=== PATIENT | female | born 1965 | race Caucasian/White ===

== ENCOUNTER 2017-09-22 10:22 | Day surgery (SDC) | payer MEDICARE, MEDICAID, SELFPAY ==
[2017-09-22 10:45] VITALS: BP 132/87; PULSE 80; RESP 16; TEMP 36.8; O2SAT 93; BMI 53.6
[2017-09-22 11:01] LABS: Bedside Glucose 139 mg/dL (70-110)
--- NOTE | 2017-09-22 11:50 | RAD_ITS ---
PROCEDURE: Caudal block. DATE OF EXAMINATION: September 22, 2017. INDICATION: Female, 51 years old. Low back pain. FLUOROSCOPY TIME (if supplied): (0:10) minutes/seconds A caudal block was performed by the pain management physician. The spinal needle is seen along the mid inferior aspect of the posterior sacrum. RAD/Fluor Guidance for Spine Inj IMPRESSION: Imaging provided for caudal block. Electronically Signed: Michael Ball MD at 15:20 EDT Tel [phone], Service support ,
[2017-09-22] MEDS: MethylPREDNISolone Acetate 80 MG/ML Vial (12:05)
[2017-09-22] MEDS: Bupivacaine 0.25% 30 ML Vial (12:05)
[2017-09-22 12:11] VITALS: BP 122/82; BP 132/87; PULSE 81; RESP 16; TEMP 36.7; O2SAT 94
[2017-09-22 12:15] VITALS: BP 112/92; BP 132/87; PULSE 80; RESP 16; O2SAT 92
[2017-09-22 12:20] VITALS: BP 123/90; BP 132/87; PULSE 82; RESP 18; O2SAT 94
[2017-09-22 12:25] VITALS: BP 125/84; BP 132/87; PULSE 80; RESP 18; TEMP 37; O2SAT 94
[2017-09-22 12:26] LABS: Bedside Glucose 147 mg/dL (70-110)
[2017-09-22 12:42] VITALS: BP 125/84; BP 132/87
--- NOTE | 2017-09-22 13:34 | OP.PCM_ITS ---
Problem List (1) Degeneration of intervertebral disc of lumbosacral region Status: Chronic (2) Radiculopathy of lumbosacral region Status: Chronic Report of Operation Date of Procedure: 09/22/17 Pre-Operative Diagnosis: Lumbosacral radiculopathy, lumbosacral degenerative disc disease, lumbosacral spinal stenosis Post-Operative Diagnosis: Lumbosacral radiculopathy, lumbosacral degenerative disc disease, lumbosacral spinal stenosis Surgery/Procedure Performed:: Diagnostic/therapeutic caudal epidural steroid injection Description of Surgical Findings:: PROCEDURE: Diagnostic/therapeutic caudal epidural steroid injection PREOPERATIVE DIAGNOSIS: Lumbosacral radiculopathy, lumbosacral degenerative disc disease, lumbosacral spinal stenosis POSTOPERATIVE DIAGNOSIS: Lumbosacral radiculopathy, lumbosacral degenerative disc disease, lumbosacral spinal stenosis ANESTHESIA: MAC COMPLICATIONS: None BLOOD LOSS: Minimal PROCEDURE IN DETAIL: History and physical today was reviewed. Risks and benefits of the procedure were explained. The patient understood, agreed to our procedure, and informed consent was obtained. IV inserted per routine protocol. The patient was taken to the operating room, placed in a prone position with a pillow positioned underneath the abdomen. The lower back and tailbone area was prepped and draped in a sterile fashion using iodine ?3 under direct visualization fluoroscopy on the lateral view the caudal space was identified the skin and subcutaneous tissue and size approximately 3 cc of 1% lidocaine using a 25-gauge regular needle under direct visualization with fluoroscopy on the lateral view using a 22-gauge 3-1/2 inch spinal needle the needle was advanced via the skin through the sacral hiatus the peroneal passed through the sacrococcygeal ligament advanced approximately S4 area after negative aspiration of blood or CSF a total of 3 cc of contrast were injected to confirm correct placement of the needle as well as cephalad spread spread was followed to approximately L5 area after confirmation AP as well as lateral view and repeated negative aspiration a total of 15 cc of preservative-free 0.125% Marcaine with 80 mg of the portal was injected easily. The needles were then removed intact. The patient experienced no signs or symptoms intrathecal, intravascular injection. The patient experienced no paraesthesia. The procedure was completed without any apparent difficult, any complication. The patient appeared to tolerate well. ASSESSMENT AND PLAN: This is a 51-year-old female with lumbosacral radiculopathy lumbosacral degenerative disc disease lumbosacral spinal stenosis status post diagnostic/ therapeutic caudal epidural steroid injection. The patient will continue his current medications. The patient will follow in approximately 2 weeks for possible repeat of the procedure if indicated.
== END 2017-09-22 12:44 | disposition home or self-care (01) ==
LOC: SDC 10:24 → AC 10:26
PROVIDERS: Family Provider Internal Medicine; PCP Internal Medicine; Visit Provider Anesthesiology Pain Medicine
PROC: 3E0S3BZ Introduction of Anesthetic Agent into Epidural Space, Percutaneous Approach (ICD-10-PCS; CPT 62282; principal; 2017-09-22 11:45)
DX: M51.17 Intervertebral disc disorders with radiculopathy, lumbosacral region (principal); M48.07 Spinal stenosis, lumbosacral region; E11.9 Type 2 diabetes mellitus without complications; I10 Essential (primary) hypertension; M19.90 Unspecified osteoarthritis, unspecified site; M79.7 Fibromyalgia; R53.83 Other fatigue; G47.30 Sleep apnea, unspecified; K21.9 Gastro-esophageal reflux disease without esophagitis; F41.0 Panic disorder [episodic paroxysmal anxiety]; F32.9 Major depressive disorder, single episode, unspecified; F41.9 Anxiety disorder, unspecified; Z79.84 Long term (current) use of oral hypoglycemic drugs; Z79.82 Long term (current) use of aspirin; Z79.52 Long term (current) use of systemic steroids; Z79.891 Long term (current) use of opiate analgesic; Z79.899 Other long term (current) drug therapy; Z98.51 Tubal ligation status
CPT/HCPCS: 01992; 62323; 64483; 77003; 82962; J7120; J3490

== ENCOUNTER 2017-10-27 07:24 | Day surgery (SDC) | payer SELFPAY ==
[2017-10-27 07:43] VITALS: BP 130/63; PULSE 88; RESP 18; TEMP 36.7; O2SAT 94; BMI 52.1
[2017-10-27 08:06] LABS: Bedside Glucose 132 mg/dL (70-110)
--- NOTE | 2017-10-27 08:30 | RAD_ITS ---
PROCEDURE: Fluoroscopy guided intraoperative pain management DATE OF EXAMINATION: 10/27/2017 INDICATION: Female, 51 years old. Back pain. PHYSICIAN: Dr. Simmons FLUOROSCOPY TIME (if supplied): 21.5 seconds RADIATION DOSAGE (If Supplied By Facility): 11.91 mGy PROCEDURE/TECHNIQUE: Fluoroscopy and 4 fluoroscopic spot images were obtained under direction, supervision and review of the intraoperative physician. Radiologist not present intraoperatively. Please see intraoperative report for details. RAD/Lumbar Spine 2 or 3 Views IMPRESSION: Imaging provided for lumbosacral pain management. Please see intraoperative report for details. Electronically Signed: Chandu Monaco, at 13:41 EDT Tel , Service support ,
[2017-10-27 08:45] VITALS: BP 105/74; BP 130/63; PULSE 83; RESP 12; TEMP 36.9; O2SAT 95
[2017-10-27 08:50] VITALS: BP 114/75; BP 130/63; PULSE 86; RESP 16; O2SAT 94
[2017-10-27 08:55] VITALS: BP 103/74; BP 130/63; PULSE 83; RESP 16; O2SAT 93
[2017-10-27 09:00] VITALS: BP 130/63; BP 134/75; PULSE 83; RESP 16; TEMP 36.6; O2SAT 95
[2017-10-27 09:17] VITALS: BP 130/63
--- NOTE | 2017-10-27 10:42 | PCM.OPRPT ---
Problem List (1) Spondylosis of lumbosacral region without myelopathy or radiculopathy Status: Chronic (2) Degeneration of intervertebral disc of lumbosacral region Status: Chronic Report of Operation Date of Procedure: 10/27/17 Pre-Operative Diagnosis: Lumbosacral spondylosis, lumbosacral degenerative disc disease, and lumbar facet arthropathy Post-Operative Diagnosis: Lumbosacral spondylosis, lumbosacral degenerative disc disease, and lumbar facet arthropathy Surgery/Procedure Performed:: Right-sided lumbar facet steroid injection L3, L4, L5, S1 Description of Surgical Findings:: PROCEDURE: Right-sided lumbar facet steroid injection L3, L4, L5, S1 PREOPERATIVE DIAGNOSIS: Lumbosacral spondylosis, lumbosacral degenerative disc disease, and lumbar facet arthropathy POSTOPERATIVE DIAGNOSIS: Lumbosacral spondylosis, lumbosacral degenerative disc disease, and lumbar facet arthropathy ANESTHESIA: MAC COMPLICATIONS: None BLOOD LOSS: Minimal PROCEDURE IN DETAIL: History and physical today was reviewed. Risks and benefits of the procedure were explained. The patient understood, agreed to our procedure, and informed consent was obtained. IV inserted per routine protocol. The patient was taken to the operating room, placed in a prone position with a pillow positioned underneath the abdomen. The right side of his lower back was prepped and draped in a sterile fashion using iodine x3. Under fluoroscopy guidance, on AP view, L3 through S1 vertebral bodies were visualized. Skin and subcutaneous tissues were anesthetized with approximately 5 mL of 1% lidocaine using a 25-gauge regular needle. Under direct visualization with fluoroscopy at approximately 25-degree angle, starting on the right L3, ending on the right S1, passing through the L4-L5 using a 22-gauge 3 1/2-inch spinal needle, the needle was advanced via the skin. The tip of the needle was maneuvered and directed towards the superior and medial gutter of the transverse process at the vicinity of the medial branch. Once the tip of the needle was in contact with the bone, the needle pulled approximately 2 mm off the bone. After negative aspiration of blood with CSF and confirmation of AP as well as oblique view, a total of 8 mL of preservative-free 0.25% Marcaine with 80 mg of Depo-Medrol was injection in divided doses between those 4 levels. The needles were then removed intact. The patient experienced no signs or symptoms intrathecal, intravascular injection. The patient experienced no paraesthesia. The procedure was completed without any apparent difficult, any complication. The patient appeared to tolerate well. ASSESSMENT AND PLAN: This is a 51-year-old Female with Lumbosacral spondylosis, lumbosacral degenerative disc disease, and lumbar facet arthropathy, status post right-sided lumbar facet steroid injection L3 through S1. The patient will continue her current medications. The patient will follow in approximately 2 weeks for possible repeat of the procedure if indicated.
--- NOTE | 2017-10-27 10:45 | OP.PCM_ITS ---
Problem List (1) Spondylosis of lumbosacral region without myelopathy or radiculopathy Status: Chronic (2) Degeneration of intervertebral disc of lumbosacral region Status: Chronic Report of Operation Date of Procedure: 10/27/17 Pre-Operative Diagnosis: Lumbosacral spondylosis, lumbosacral degenerative disc disease, and lumbar facet arthropathy Post-Operative Diagnosis: Lumbosacral spondylosis, lumbosacral degenerative disc disease, and lumbar facet arthropathy Surgery/Procedure Performed:: Right-sided lumbar facet steroid injection L3, L4 , L5, S1 Description of Surgical Findings:: PROCEDURE: Right-sided lumbar facet steroid injection L3, L4, L5, S1 PREOPERATIVE DIAGNOSIS: Lumbosacral spondylosis, lumbosacral degenerative disc disease, and lumbar facet arthropathy POSTOPERATIVE DIAGNOSIS: Lumbosacral spondylosis, lumbosacral degenerative disc disease, and lumbar facet arthropathy ANESTHESIA: MAC COMPLICATIONS: None BLOOD LOSS: Minimal PROCEDURE IN DETAIL: History and physical today was reviewed. Risks and benefits of the procedure were explained. The patient understood, agreed to our procedure, and informed consent was obtained. IV inserted per routine protocol. The patient was taken to the operating room, placed in a prone position with a pillow positioned underneath the abdomen. The right side of his lower back was prepped and draped in a sterile fashion using iodine x3. Under fluoroscopy guidance, on AP view, L3 through S1 vertebral bodies were visualized. Skin and subcutaneous tissues were anesthetized with approximately 5 mL of 1% lidocaine using a 25-gauge regular needle. Under direct visualization with fluoroscopy at approximately 25-degree angle, starting on the right L3, ending on the right S1, passing through the L4-L5 using a 22-gauge 3 1/2-inch spinal needle, the needle was advanced via the skin. The tip of the needle was maneuvered and directed towards the superior and medial gutter of the transverse process at the vicinity of the medial branch. Once the tip of the needle was in contact with the bone, the needle pulled approximately 2 mm off the bone. After negative aspiration of blood with CSF and confirmation of AP as well as oblique view, a total of 8 mL of preservative-free 0.25% Marcaine with 80 mg of Depo- Medrol was injection in divided doses between those 4 levels. The needles were then removed intact. The patient experienced no signs or symptoms intrathecal, intravascular injection. The patient experienced no paraesthesia. The procedure was completed without any apparent difficult, any complication. The patient appeared to tolerate well. ASSESSMENT AND PLAN: This is a 51-year-old Female with Lumbosacral spondylosis, lumbosacral degenerative disc disease, and lumbar facet arthropathy, status post right- sided lumbar facet steroid injection L3 through S1. The patient will continue her current medications. The patient will follow in approximately 2 weeks for possible repeat of the procedure if indicated.
== END 2017-10-27 09:28 | disposition home or self-care (01) ==
LOC: SDC 07:25 → AC 07:31
PROVIDERS: Family Provider Internal Medicine; PCP Internal Medicine; Visit Provider Anesthesiology Pain Medicine
PROC: 3E0T3BZ Introduction of Anesthetic Agent into Peripheral Nerves and Plexi, Percutaneous Approach (ICD-10-PCS; CPT 64493; principal; 2017-10-27 08:25)
DX: M47.897 Other spondylosis, lumbosacral region (principal); M51.37 Other intervertebral disc degeneration, lumbosacral region; M46.96 Unspecified inflammatory spondylopathy, lumbar region; M48.061 Spinal stenosis, lumbar region without neurogenic claudication; I10 Essential (primary) hypertension; E11.9 Type 2 diabetes mellitus without complications; L40.9 Psoriasis, unspecified; F41.9 Anxiety disorder, unspecified; F32.9 Major depressive disorder, single episode, unspecified; M79.7 Fibromyalgia; E11.40 Type 2 diabetes mellitus with diabetic neuropathy, unspecified; G47.30 Sleep apnea, unspecified; M19.90 Unspecified osteoarthritis, unspecified site; K21.9 Gastro-esophageal reflux disease without esophagitis; E66.9 Obesity, unspecified; Z68.43 Body mass index [BMI] 50.0-59.9, adult; Z90.49 Acquired absence of other specified parts of digestive tract; Z79.82 Long term (current) use of aspirin; Z79.84 Long term (current) use of oral hypoglycemic drugs; Z79.891 Long term (current) use of opiate analgesic; Z79.899 Other long term (current) drug therapy
CPT/HCPCS: 64493; 64494; 64495; 64483; 72100; 82962; J7120

== ENCOUNTER 2017-11-10 13:09 | Emergency (ER) | payer MEDICARE, MEDICAID, SELFPAY ==
[2017-11-10 13:10] VITALS: BP 128/88; PULSE 122; RESP 16; TEMP 36.3; O2SAT 98; BMI 52.2
--- NOTE | 2017-11-10 13:33 | ED.VISSUMM ---
- ER Visit Summary Date of Service: 11/10/17 Chief Complaint: Stomach and back pain History of Present Illness: The patient is a 52 F who presents with stomach pain, pain in the back. She states is been ongoing for 3 days. She states the pain is there both of her kidneys. She also has pain over her bladder. She admits to dysuria with some urinary hesitancy as well. She has a history of UTIs in the past. No documented fevers denies any nausea or vomiting. She does have a history of fibromyalgia. Physical Examination: Vital signs reviewed. HEENT exam unremarkable. Heart is tachycardic and regular rhythm without murmurs. Lungs are clear to auscultation. Abdomen is soft with suprapubic tenderness to palpation. She does have some CVA tenderness on both sides. Her neurologic exam is normal. Test Results: Urinalysis reveals 2+ leukocytes and greater than 100 white blood cells Emergency Department Course and Treatment: Patient will be treated with Macrobid. She has no nausea or vomiting so I believe she can be treated as an outpatient. Treatment Plan: [] Disposition: Discharge Impression: Pyelonephritis This note was generated with [employer] dictation software. It may contain incorrect words, spelling, and punctuation that were not noted in review of the chart prior to signing ED Disposition - Plan for ED Patient: Chief Complaint: Complaint Referrals: Amanda Hallman MD [Primary Care Provider] -
[2017-11-10 13:55] LABS: Bacteria 0 SEEN /hpf (None Seen); Mucous, Urine 0 SEEN /hpf (<or=2+); Red Blood Cells-Urine 0 SEEN /hpf (0-5); Squamous Epithelial Cells - UA 0 SEEN /hpf (5-10)
[2017-11-10 13:57] LABS: Color, Urine Yellow (Yellow); Glucose, Dipstick Normal (Normal); Ketone-Dipstick Negative (Negative); Leukocyte Esterase-Dipstick 500 /ul (Negative); Nitrite-Dipstick Positive (Negative); Occult Blood-Urine 250 /ul (Negative); Protein-Dipstick 500 mg/dl (Negative); Specific Gravity, Urine 1.015 (1.002-1.030); Urine Bilirubin Dipstick Negative (Negative); Urine Clarity Turbid (Clear); Urine Urobilinogen 1 mg/dl (Normal)
[2017-11-10 14:05] LABS: White Blood Cells >100 SEEN /hpf (0-5)
--- NOTE | 2017-11-10 14:22 | ED.DEP ---
ED Disposition - Plan for ED Patient: Disposition: Home or Assisted Living Chief Complaint: Complaint Instructions: ED Kidney Infec Female Prescriptions: Nitrofurantoin Macrocrystals [Macrobid] 100 mg PO Q12 #14 cap Referrals: Amanda Hallman MD [Primary Care Provider] -
[2017-11-10] MEDS: Nitrofurantoin Macrocrystals 100 MG Capsule PO (14:49)
[2017-11-10 14:53] VITALS: PULSE 84; RESP 17; O2SAT 90
== END 2017-11-10 14:56 | disposition home or self-care (01) ==
PROVIDERS: Emergency Provider Emergency Medicine; Family Provider Internal Medicine; PCP Internal Medicine
DX: N12 Tubulo-interstitial nephritis, not specified as acute or chronic (principal); E11.9 Type 2 diabetes mellitus without complications; I10 Essential (primary) hypertension; M79.7 Fibromyalgia; Z79.82 Long term (current) use of aspirin; Z79.4 Long term (current) use of insulin; Z79.899 Other long term (current) drug therapy; Z87.440 Personal history of urinary (tract) infections
CPT/HCPCS: 81001; 99283

== ENCOUNTER 2018-10-29 23:20 | Inpatient (IN) | payer MEDICARE, MEDICAID, SELFPAY ==
[2018-10-29 23:22] VITALS: BP 83/58; PULSE 138; RESP 18; TEMP 36.6; O2SAT 93; BMI 39.1
[2018-10-29 23:25] VITALS: BP 79/57; PULSE 113; RESP 16; O2SAT 94
--- NOTE | 2018-10-29 23:36 | EKG12_ITS ---
Test Reason : Blood Pressure : / mmHG Vent. Rate : 111 BPM Atrial Rate : 111 BPM P-R Int : 154 ms QRS Dur : 082 ms QT Int : 342 ms P-R-T Axes : 041 006 049 degrees QTc Int : 465 ms Sinus tachycardia Otherwise normal ECG Confirmed by ADAN MESSER ([id number]), telegraph editor ANGELA DASH ([id number]) on 11/02/2018 1:15:33 PM Referred By: MATHEW Confirmed By:ADAN MESSER
--- NOTE | 2018-10-29 23:38 | ED.DCSUM_ITS ---
History of Present Illness Chief Complaint: Diarrhea Informant: Patient - Abdominal Pain/Flank Pain Onset: Days - 5 Context: Gradual Onset Timing: Continuous Quality: Aching Location: - - pain in lower abd Current Severity: Mild Maximum Severity: Mild Worsened by: Nothing Relieved by: Nothing - Nausea/Vomiting/Emesis GI Symptom: Negative for: Nausea, Vomiting - Diarrhea/Melena/Hematochezia GI Symptom: Diarrhea, Hematochezia - I think so, at times. Negative for: Melena - I don't think so Onset: Days - 5 Stool Quality: Watery - and slimy Severity: Severe - over 10 bouts/day Associated Symptoms: Negative for: Dysuria, Frequency, Hematuria, Urgency Narrative: Patient states she has felt malaise with this diarrhea, she stood up tonight and had a near syncopal episode, she did not lose consciousness. No chest pain or shortness of breath. States she has been drinking water without nausea or vomiting. No recent antibiotics, no known sick contacts, no recent travel. No history of C. difficile or known contact with C. difficile or longterm patient. No recent hospitalization or surgeries in the past several months. No recent camping or new sources of ground water ingestion. Denies any known fevers. Having some lower abdominal discomfort that has been relatively mild. - Past Medical History (1) Degeneration of intervertebral disc of lumbosacral region Status: Chronic (2) Depression Status: Chronic (3) Diabetes mellitus, type II Status: Chronic (4) Diastolic dysfunction Status: Chronic (5) Fibromyalgia Status: Chronic (6) Hypertension Status: Chronic (7) Morbid obesity Status: Chronic (8) Obstructive sleep apnea Status: Chronic (9) Osteoarthritis Status: Chronic (10) Spondylosis of lumbosacral region without myelopathy or radiculopathy Status: Chronic (11) TIA (transient ischemic attack) Status: Suspected Past Medical History - Allergies and Home Meds Allergies/Adverse Reactions: Allergies amoxicillin trihydrate [From Augmentin] Allergy (Verified 10/29/18 23:49) Unknown potassium clavulanate [From Augmentin] Allergy (Verified 10/29/18 23:49) Unknown Primary Care Physician: Amanda Hallman MD [Primary Care Provider] - Surgical History: cholecystectomy, - - Cholecystectomy, , tubal ligation Lives: With Family Smoking Status: Current some day smoker Drugs: None - Family History Maternal Family History: Reports: - Paternal Family History: Reports: Heart Disease, - Review of Systems General: Reports: Malaise. Denies: Chills, Fever, Sweats Eyes: Denies: Visual changes - bilaterally, Diplopia ENT: Denies: Rhinorrhea, Sore throat Cardiovascular: Denies: Chest pain, Palpitations Respiratory: Denies: Dyspnea, Cough, Dyspnea on exertion Gastrointestinal: Reports: Abdominal pain, Diarrhea, Hematochezia. Denies: Nausea, Vomiting, Melena Genitourinary: Denies: Dysuria, Hematuria, Frequency Musculoskeletal: Reports: Back pain - low. Denies: Swelling, Extremity Pain Skin: Denies: Rash, Wounds Neurological: Denies: Headache, Weakness, Numbness Physical Exam Vital Signs/Narrative: Vital Signs Temp Pulse Resp BP Pulse Ox 10/29/18 23:22 97.9 F 138 H 18 83/58 L 93 Inital Vital Signs reviewed: Yes General: Well nourished, Well developed, Obese, No Acute Distress Head: Normocephalic, Atraumatic Eyes: Perrl, EOMI ENT: Moist mucous membranes, No rhinorrhea Neck: Supple, Nontender, No JVD Cardiovascular: Regular rate, Regular rhythm, No murmurs, Tachycardia Respiratory: No distress, CTA bilaterally, Chest nontender Abdomen: Soft, Nontender, Nondistended, Normal bowel sounds, No masses. Negative for: Pulsatile mass Rectal: Guaiac positive, Nontender - no gross blood Back: Nontender, Normal Inspection Extremities: Nontender, No edema. Negative for: Calf Tenderness Skin: Normal color, No rash, No Trauma Neurological: Alert, Oriented x3, Cranial nerves II-XII grossly intact, Normal Strength, Normal Sensation Psychological: Normal affect, Normal Mood Diagnostic/Tx/Re-eval 10/29/18 23:35 Stool Stool Occult Blood (AMANDA) - Final Occult Blood Positive Laboratory Results 10/29/18 10/29/18 23:35 23:35 WBC 15.6 H RBC 6.04 H Hgb 16.7 H Hct 51.6 H MCV 85.4 MCH 27.6 MCHC 32.4 RDW Std Deviation 43.2 RDW Coeff of Omar 13.9 Plt Count 330 MPV 11.0 Immature Gran % (Auto) 0.400 Neut % (Auto) 56.2 Lymph % (Auto) 30.7 [place] % (Auto) 11.2 H Eos % (Auto) 1.1 Baso % (Auto) 0.4 Absolute Neuts (auto) 8.8 H Absolute Lymphs (auto) 4.79 H Nucleated RBC % 0 Sodium 137 Potassium 3.6 Chloride 102 Carbon Dioxide 28.0 Anion Gap 7 BUN 18 Creatinine 1.51 H Estim Creat Clear Calc 41.90 Est GFR (MDRD) Af Amer 46 L Est GFR (MDRD) Non-Af 38 L BUN/Creatinine Ratio 11.9 Glucose 137 H Calcium 8.8 Total Bilirubin 0.30 AST 12 L ALT 16 Alkaline Phosphatase 96 Total Protein 7.0 Albumin 2.9 L Globulin 4.1 Albumin/Globulin Ratio 0.7 L - Rhythm Strip Rhythm Strip: Sinus Tach Rate: 111 Ectopy: None - EKG Initial EKG Interpretation: No Acute Injury Pattern, Sinus Tachycardia - Medical Decision Making After the first liter of IV fluid bolus, her heart rate is come down to 94 but her blood pressure still 82/59 as we started a second liter. She is feeling a little better. Her abdominal exam is very benign. She does not have any red f lag historical items that suggest the cause of this, but her Hemoccult is positive, and she has a leukocytosis indicating possibility of bacterial/infectious etiology which would not be able to be verified until stool is tested, she has not provided a specimen yet. I am not providing empiric antibiotics because there is the potential of worsening her diarrhea, and I suspect she is hypovolemic shock as opposed to septic shock. Clinically she does not look poorly while lying supine here in bed. However given her blood pressure after the first liter and half of the second, plan is for ICU admi ssion. Critical care time (excluding procedures): 30-74 minutes - 34 minutes, including time spent discussing with patient and family, consultants, arranging admission, and performing direct patient care at the bedside ED Disposition - Plan for ED Patient: Disposition: Acute Care Hospital [facility] Diagnosis: Acute diarrhea, Hypovolemic shock, Dehydration Referrals: Amanda Hallman MD [Primary Care Provider] -
[2018-10-29 23:48] LABS: Absolute Lymphocyte Count 4.79 X10^3/uL (0.83-4.51); Absolute Neutrophil Count 8.8 X10^3/uL (2.0-7.7); Basophil# 0.07 X10^3/uL; Basophil% 0.4 % (0-1); Eosinophil# 0.17 X10^3/uL; Eosinophils% 1.1 % (0-5); Hematocrit 51.6 % (37-47); Hemoglobin 16.7 g/dL (12.0-15.0); Lymphocyte # 4.79 X10^3/ul (4.0); Lymphocyte % 30.7 % (19-41); Mean Corp Hgb Conc 32.4 g/dL (32-36); Mean Corpuscular Hgb 27.6 pg (27.0-32.0); Mean Corpuscular Volume 85.4 fL (81-99); Monocyte# 1.75 X10^3/uL; Monocyte% 11.2 % (0-10); NRBC Flagged by Analyzer 0 % (0-5); Neutrophil # 8.76 X10^3/uL (2.7-7.7); Neutrophil % 56.2 % (47-70); POSITIVE DIFFERENTIAL YES; Platelet Count 330 K/mm3 (150-450); RBC Distribution Width CV 13.9 % (11.6-14.6); RBC Distribution Width SD 43.2 fl (35.1-43.9); Red Blood Count 6.04 M/mm3 (4.2-5.4); White Blood Count 15.6 K/mm3 (4.4-11.0)
[2018-10-29 23:54] LABS: Differential Indicated SCAN CRITERIA MET
[2018-10-29] MEDS: 0.9% Normal Saline 1,000 ML 999 ML IV (23:54)
[2018-10-30] VITALS (20 sets, daily range): BP systolic 82–124; BP diastolic 55–87; PULSE 84–105; RESP 15–21; TEMP 36.6–36.8; O2SAT 91–99; BMI 39.9; BMI 40.0
[2018-10-30 00:09] LABS: ALB/GLOB Ratio 0.7 RATIO (0.9-2.4); AST(SGOT) 12 U/L (15-37); Alanine Aminotransfer ALT/SGPT 16 U/L (13-56); Albumin, Serum 2.9 g/dL (3.2-5.0); Alkaline Phosphatase 96 U/L (45-117); Anion Gap 7 (5-15); BUN 18 mg/dL (7-18); BUN/Creat Ratio 11.9 RATIO (10-20); Calcium,Total 8.8 mg/dL (8.5-10.1); Chloride 102 mmol/L (98-107); Creatinine, Serum 1.51 mg/dL (0.55-1.02); EST Glomerular Filtration Rate 38 mL/min (>60); Est Glom Filt Rate - Afr Amer 46 mL/min (>60); Globulin 4.1 g/dL (2.2-4.2); Glucose 137 mg/dL (74-106); Potassium 3.6 mmol/L (3.5-5.1); Sodium Level 137 mmol/L (136-145)
[2018-10-30 00:23] LABS: Differential Comment SCANNED
[2018-10-30 00:25] LABS: Reactive Lymphocyte 2+
[2018-10-30] MEDS: 0.9% Normal Saline 1,000 ML 999 ML IV (00:25)
--- NOTE | 2018-10-30 00:25 | PCM.HP.STD ---
Problem List (1) Acute diarrhea Status: Acute (2) Hypovolemic shock Status: Acute History of Present Illness Date of Admission: 10/30/18 Chief Complaint: diarrhea The patient is a 52 year old F with a significant history of fibromyalgia; depression; hypertension; obesity with history of gastric sleeve surgery who presents at the emergency department with 5 days history of diarrhea. Reportedly on the day of presentation his bowels moved 15 times. A day before presentation his bowels moved about 12 times. She denies any nausea or vomiting. She reports anorexia and lower abdominal pain. She reported that on the day of presentation after her bowels moved and when she was cleaning up she felt lightheaded and nearly passed out. At the emergency department patient was found to have a low blood pressure for which she received fluid boluses. Patient is unable to confirm whether she has blood in her stool.. She thinks that at one time she had blood in his stool but she is not sure. At the emergency department fecal occult blood was positive. 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) Obstructive sleep apnea (Chronic) Depression (Chronic) Diastolic dysfunction (Chronic) Diabetes mellitus, type II (Chronic) Osteoarthritis (Chronic) Morbid obesity (Chronic) Hypertension (Chronic) Fibromyalgia (Chronic) Allergies amoxicillin trihydrate [From Augmentin] Allergy (Verified 10/29/18 23:49) Unknown potassium clavulanate [From Augmentin] Allergy (Verified 10/29/18 23:49) Unknown Home Medications: Ambulatory Orders Medication Instructions Recorded Aripiprazole [Abilify] 5 mg PO DAILY 03/10/15 Hydrochlorothiazide [Hctz] 25 mg PO DAILY 03/10/15 Lisinopril [Zestril] 10 mg PO DAILY 03/10/15 cycloBENZAPRine HCl [Flexeril] 10 mg PO DAILY PRN 03/10/15 Pantoprazole Sodium [Protonix] 40 mg PO DAILY 11/30/15 Duloxetine Hcl [Cymbalta] 90 mg PO DAILY 01/02/17 Gabapentin [Neurontin] 300 mg PO 5X/DAY 09/22/17 Surgical History: cholecystectomy, - - Cholecystectomy, , tubal ligation; gastric sleeve surgery Lives: With Family Smoking Status: Former smoker Alcohol: None Drugs: None - *Family History Maternal History Items: Cancer - She reported her mother had breast and lung cancer, - Paternal History Items: Heart Disease - For her father from pulmonary cardiac arrest at age 50, - Review of Systems Constitutional: Reports: Chills, Fever - Subjective. Denies: Weight Change HEENT: Denies: Head Aches, Sinus Congestion, Sinus Drainage Cardiovascular: Denies: Chest Pain, Palpitations Respiratory: Denies: Cough, Shortness of breath at rest, Sputum production Gastrointestinal: Reports: Abdominal Pain, Diarrhea. Denies: Nausea, Vomiting Genitourinary: Denies: Dysuria Musculoskeletal: Denies: Joint Pain, Joint Tenderness Skin: Denies: Rash, Wounds Neurological: Denies: Numbness, Tingling, Focal weakness Psychiatric: Reports: Depression. Denies: Anxiety, Homicidal Ideations, Suicidal Ideations Hematologic/ Lymphatic: Denies: Easy Bruising, Easy Bleeding VTE Information - Inpt Only VTE Present on Admission: No VTE Mechan Device Prophylaxis: SCD's VTE Pharm Prophylaxis ordered?: No Patient Problems: Active and Suspected Problems Acute diarrhea (Acute) Hypovolemic shock (Acute) Dehydration (Acute) - Physical Exam General: Alert, Oriented x3, Cooperative HEENT: Atraumatic, PERRLA, EOMI, Normocephalic Neck: Supple, No JVD, Negative Carotid Bruits Lungs: Clear to auscultation, Normal air movement Cardiovascular: No murmurs, Tachycardic Abdomen: Bowel Sounds Present, Soft, Non Tender, Hyperactive Bowel Sounds Extremities: No edema, Capillary Refill Less than 3 Seconds Skin: No rashes, No breakdown Musculoskeletal: No Tenderness to Palpation of Joints or Extremities Neurological: Cranial nerves II-XII grossly intact Psych/Mental Status: Normal Affect, Appropriate Vital Signs Temp Pulse Resp BP Pulse Ox 97.9 F 113 H 16 79/57 L 94 10/29/18 23:22 10/29/18 23:25 10/29/18 23:25 10/29/18 23:25 10/29/18 23:25 Oxygen Flow Rate (L/min) 2 Oxygen Delivery Method Nasal Cannula Weight: 113.398 kg Body Mass Index (BMI) 39.1 Finger Stick Blood Glucose 147 Microbiology Past 72 Hours 10/29/18 23:35 Stool Occult Blood (AMANDA) - Final Stool Occult Blood Positive Laboratory Tests Past 24 Hrs 10/29/18 10/29/18 23:35 23:35 WBC 15.6 H RBC 6.04 H Hgb 16.7 H Hct 51.6 H MCV 85.4 MCH 27.6 MCHC 32.4 RDW Std Deviation 43.2 RDW Coeff of Omar 13.9 Plt Count 330 MPV 11.0 Immature Gran % (Auto) 0.400 Neut % (Auto) 56.2 Lymph % (Auto) 30.7 [place] % (Auto) 11.2 H Eos % (Auto) 1.1 Baso % (Auto) 0.4 Absolute Neuts (auto) 8.8 H Absolute Lymphs (auto) 4.79 H Nucleated RBC % 0 Sodium 137 Potassium 3.6 Chloride 102 Carbon Dioxide 28.0 Anion Gap 7 BUN 18 Creatinine 1.51 H Estim Creat Clear Calc 41.90 Est GFR (MDRD) Af Amer 46 L Est GFR (MDRD) Non-Af 38 L BUN/Creatinine Ratio 11.9 Glucose 137 H Calcium 8.8 Total Bilirubin 0.30 AST 12 L ALT 16 Alkaline Phosphatase 96 Total Protein 7.0 Albumin 2.9 L Globulin 4.1 Albumin/Globulin Ratio 0.7 L Assessment/Plan All Active Problems Acute diarrhea (Acute) Hypovolemic shock (Acute) Dehydration (Acute) Diabetes (Acute) The patient is a 52 year old F with a significant history of fibromyalgia; depression; hypertension; obesity with history of gasless sleeve who presents emergency department with 5 days history of diarrhea found to be severely hypotensive and also with elevated creatinine consistent with hypovolemic shock secondary to dehydration from diarrhea and BEST. Hypovolemic shock Likely secondary to diarrhea. Normal saline 2 L bolus was ordered at the emergency department. At the time of evaluation patient had about 200 mL's of normal saline letter to be fused. Will order a bolus of lactated Ringer this patient as the patient is mildly hypokalemic. Upon completion of lactated Ringer's if patient is hypovolemic consider further IV fluids. Hold home hydrochlorthiazide and lisinopril. Check magnesium level Complaints Coordinator consult. Acute diarrhea Enteric pathogen panel and C. difficile ordered emergency department. Also order O&P. Supportive treatment with IV fluids. Because of the gravity of her symptoms start patient on antibiotics, ciprofloxacin IV and Flagyl IV. Trend CBC. Regular diet. BEST: on presentation her creatinine was 1.51 Review of old records shows a creatinine baseline of around 1 Likely prerenal from dehydration secondary diarrhea. Avoid nephrotoxic's. HCTZ and lisinopril held Trend BMP. Fibromyalgia Cymbalta continued Depression: Abilify and Cymbalta continued Neuropathy Neurontin continued. However will decrease dose because of BEST. GERD Protonix continued DVT prophylaxis No chemical prophylaxis at this time because of occult blood in stool SCD ordered. Code Visit Inpatient E&M: 12798 Init Hosp L3
--- NOTE | 2018-10-30 01:10 | ED.RN ---
NURSE TO NURSE REPORT CALLED TO ICU
[2018-10-30] MEDS: Lactated Ringers 1,000 ML 999 ML IV ×2 (01:47→07:10)
[2018-10-30] MEDS: metroNIDAZOLE 500 MG/100 ML BAG 100 MG IV (02:50)
[2018-10-30] MEDS: 0.9% NaCl IVPB Med Flush (250 mL) 15 ML IV (02:50)
[2018-10-30] MEDS: Ciprofloxacin 400 MG/200 ML BAG 200 MG IV ×2 (02:50→08:47)
[2018-10-30 04:23] LABS: Absolute Lymphocyte Count 3.44 X10^3/uL (0.83-4.51); Absolute Neutrophil Count 5.9 X10^3/uL (2.0-7.7); Basophil# 0.06 X10^3/uL; Basophil% 0.6 % (0-1); Eosinophil# 0.09 X10^3/uL; Eosinophils% 0.8 % (0-5); Hematocrit 44.3 % (37-47); Hemoglobin 14.2 g/dL (12.0-15.0); Lymphocyte # 3.44 X10^3/ul (4.0); Mean Corp Hgb Conc 32.1 g/dL (32-36); Mean Corpuscular Hgb 27.5 pg (27.0-32.0); Mean Corpuscular Volume 85.9 fL (81-99); Mean Platelet Vol. 10.7 fl (6.2-12.0); Monocyte# 1.18 X10^3/uL; NRBC Flagged by Analyzer 0 % (0-5); Neutrophil # 5.93 X10^3/uL (2.7-7.7); Neutrophil % 55.2 % (47-70); Platelet Count 243 K/mm3 (150-450); RBC Distribution Width CV 13.9 % (11.6-14.6); Red Blood Count 5.16 M/mm3 (4.2-5.4); White Blood Count 10.7 K/mm3 (4.4-11.0)
[2018-10-30 04:36] LABS: Anion Gap 6 (5-15); BUN 15 mg/dL (7-18); BUN/Creat Ratio 14.4 RATIO (10-20); Calcium,Total 7.8 mg/dL (8.5-10.1); Chloride 107 mmol/L (98-107); Creatinine, Serum 1.04 mg/dL (0.55-1.02); EST Glomerular Filtration Rate 59 mL/min (>60); Est Glom Filt Rate - Afr Amer 71 mL/min (>60); Estimated Creatinine Clearance 60.83 ml/min; Glucose 110 mg/dL (74-106); Potassium 3.3 mmol/L (3.5-5.1); Sodium Level 142 mmol/L (136-145)
[2018-10-30] MEDS: Gabapentin 100 MG Capsule PO ×5 (06:23→22:28)
--- NOTE | 2018-10-30 07:17 | CON.PCM_ITS ---
Problem List (1) Radiculopathy of lumbosacral region Status: Chronic (2) Hypovolemic shock Status: Acute (3) Dehydration Status: Acute (4) Obstructive sleep apnea Status: Chronic (5) TIA (transient ischemic attack) Status: Suspected (6) Diastolic dysfunction Status: Chronic (7) Diabetes mellitus, type II Status: Chronic (8) Morbid obesity Status: Chronic (9) Hypertension Status: Chronic (10) Fibromyalgia Status: Chronic Reason for Consult Date of Consultation: 10/30/18 Reason for Consultation: Shock History of Present Illness: The patient is a 52 year old F, with past medical history listed below, who presented to [facility] on 10/29/2018 secondary to a near syncopal event. Patient reportedly had 2 days of diarrhea prior to presentation. Patient denied any nausea or vomiting, but stated on the day of presentation she had a near syncopal event, but did not lose consciousness. Patient has not recently been on antibiotics had sick contacts or recent travel. Patient does not have a history of C. difficile and is not been hospitalized recently. Patient does have a history of a gastric sleeve surgery with 60 pound weight loss. Patient states that she has not had any documented fevers, but has felt warm recently. Patient states that she is had some lower abdominal pain associated with this diarrhea. Patient denies any melena, hematochezia or hematemesis. In the ER, patient was noted to be 82/59 with a heart rate of 94. Patient was given 2 L of IV fluids with some improvement in blood pressure. Patient continued to report some lower abdominal pain, but had a relatively benign exam per ER evaluation. Patient was admitted to the intensive care unit for further monitoring. Overnight, patient has done well in the intensive care unit. Blood pressures have been doing well in a semirecumbent position and patient reported some improvement. Patient has not had any bowel movement since admission. Patient states that she still has a headache that she says is 4 out of 10 and throbbing in nature. Patient denies any recent dietary indiscretions. Did check orthostatic blood pressures and patient did test positive. Patient has been given an additional liter of LR. Review of systems otherwise negative x10 systems. 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) Obstructive sleep apnea (Chronic) Depression (Chronic) Diastolic dysfunction (Chronic) Diabetes mellitus, type II (Chronic) Osteoarthritis (Chronic) Morbid obesity (Chronic) Hypertension (Chronic) Fibromyalgia (Chronic) Allergies amoxicillin trihydrate [From Augmentin] Allergy (Verified 10/29/18 23:49) Unknown potassium clavulanate [From Augmentin] Allergy (Verified 10/29/18 23:49) Unknown Home Medications: Ambulatory Orders Medication Instructions Recorded Aripiprazole [Abilify] 5 mg PO DAILY 03/10/15 Hydrochlorothiazide [Hctz] 25 mg PO DAILY 03/10/15 Lisinopril [Zestril] 10 mg PO DAILY 03/10/15 cycloBENZAPRine HCl [Flexeril] 10 mg PO DAILY PRN 03/10/15 Pantoprazole Sodium [Protonix] 40 mg PO DAILY 11/30/15 Duloxetine Hcl [Cymbalta] 90 mg PO DAILY 01/02/17 Gabapentin [Neurontin] 300 mg PO 5X/DAY 09/22/17 Surgical History: cholecystectomy, - - Cholecystectomy, , tubal ligation; gastric sleeve surgery Lives: With Family Smoking Status: Never smoker Alcohol: None Drugs: None - *Family History Maternal History Items: Cancer - She reported her mother had breast and lung cancer, - Paternal History Items: Heart Disease - For her father from pulmonary cardiac arrest at age 50, - Review of Systems Comment: See HPI Patient Problems: Active and Suspected Problems Acute diarrhea (Acute) Hypovolemic shock (Acute) Dehydration (Acute) - Physical Exam General: Alert, Oriented x3, Cooperative, No apparent distress, Well developed, Well nourished, - - Morbidly obese. Slightly pale complexion. HEENT: Atraumatic, PERRLA, EOMI, Normocephalic, - - No scleral icterus or injection noted. Oral: Moist Mucosa, No Gingival or Mucosal Lesions/ Ulcerations Neck: Supple, No JVD, No Nodes, Trachea Midline Lungs: Clear to auscultation, Normal air movement, No rhonchi, No wheeze, No rales Cardiovascular: Regular rate, Regular Rhythm, Normal S1, Normal S2, No murmurs, No rub noted, No Gallop, - - Normal sinus rhythm noted on telemetry Abdomen: Bowel Sounds Present, Soft, Tender - Suprapubic with palpation. No rebound or guarding noted. Extremities: No clubbing, No cyanosis, No edema, Capillary Refill Less than 3 Seconds Skin: No rashes, No breakdown Musculoskeletal: No Tenderness to Palpation of Joints or Extremities Lymphatic: No Cervical, Supraclavicular, or Inguinal Adenopathy Neurological: Cranial nerves II-XII grossly intact, Neuro grossly intact, Motor Exam 5/5 strength throughout Psych/Mental Status: Alert and oriented to time, place, person, mood and affect Vital Signs Temp Pulse Resp BP Pulse Ox 36.7 C 86 19 H 119/85 H 91 10/30/18 04:00 10/30/18 06:00 10/30/18 06:00 10/30/18 06:00 10/30/18 06:00 Oxygen Flow Rate (L/min) 2 Oxygen Delivery Method Room Air Weight: 115.8 kg Body Mass Index (BMI) 39.9 Finger Stick Blood Glucose 147 Intake and Output for Last 24 Hours 10/28/18 10/29/18 10/30/18 23:59 23:59 23:59 Intake Total 489 / 489 Balance 489 / 489 Microbiology Past 72 Hours 10/29/18 23:35 Stool Occult Blood (AMANDA) - Final Stool Occult Blood Positive Laboratory Tests Past 24 Hrs 10/29/18 10/29/18 10/29/18 23:35 23:35 23:35 WBC 15.6 H RBC 6.04 H Hgb 16.7 H Hct 51.6 H MCV 85.4 MCH 27.6 MCHC 32.4 RDW Std Deviation 43.2 RDW Coeff of Omar 13.9 Plt Count 330 MPV 11.0 Immature Gran % (Auto) 0.400 Neut % (Auto) 56.2 Lymph % (Auto) 30.7 [place] % (Auto) 11.2 H Eos % (Auto) 1.1 Baso % (Auto) 0.4 Absolute Neuts (auto) 8.8 H Absolute Lymphs (auto) 4.79 H Nucleated RBC % 0 Differential Comment SCANNED Diff Path Review May foll Reactive Lymphocytes 2+ Sodium 137 Potassium 3.6 Chloride 102 Carbon Dioxide 28.0 Anion Gap 7 BUN 18 Creatinine 1.51 H Estim Creat Clear Calc 41.90 Est GFR (MDRD) Af Amer 46 L Est GFR (MDRD) Non-Af 38 L BUN/Creatinine Ratio 11.9 Glucose 137 H Calcium 8.8 Magnesium 2.0 Total Bilirubin 0.30 AST 12 L ALT 16 Alkaline Phosphatase 96 Total Protein 7.0 Albumin 2.9 L Globulin 4.1 Albumin/Globulin Ratio 0.7 L 10/30/18 10/30/18 04:15 04:15 WBC 10.7 RBC 5.16 Hgb 14.2 Hct 44.3 MCV 85.9 MCH 27.5 MCHC 32.1 RDW Std Deviation 44.0 H RDW Coeff of Omar 13.9 Plt Count 243 MPV 10.7 Immature Gran % (Auto) 0.400 Neut % (Auto) 55.2 Lymph % (Auto) 32.0 [place] % (Auto) 11.0 H Eos % (Auto) 0.8 Baso % (Auto) 0.6 Absolute Neuts (auto) 5.9 Absolute Lymphs (auto) 3.44 Nucleated RBC % 0 Differential Comment Diff Path Review Reactive Lymphocytes Sodium 142 Potassium 3.3 L Chloride 107 Carbon Dioxide 29.0 Anion Gap 6 BUN 15 Creatinine 1.04 H Estim Creat Clear Calc 60.83 Est GFR (MDRD) Af Amer 71 Est GFR (MDRD) Non-Af 59 L BUN/Creatinine Ratio 14.4 Glucose 110 H Calcium 7.8 L Magnesium Total Bilirubin AST ALT Alkaline Phosphatase Total Protein Albumin Globulin Albumin/Globulin Ratio Assessment/Plan Active and Suspected Problems Acute diarrhea (Acute) Hypovolemic shock (Acute) Dehydration (Acute) RECOMMENDATIONS: 1. Continue aggressive fluid resuscitation 2. Check orthostatic blood pressures intermittently 3. Potassium supplementation 4. Possibly discontinue antibiotics after 48 hours 5. Potential transfer from the intensive care unit later today. IMPRESSIONS: 1. Hypovolemic shock secondary to acute diarrhea Exact etiology of acute diarrhea is unclear at this time. Patient is not reporting nausea and vomiting to suggest gastroenteritis. Patient does have a history of gastric sleeve procedure in the past, so dumping would be a consideration. Patient's hydrochlorothiazide and lisinopril have been held given lower blood pressures. We will continue to aggressively volume resuscitate and checking orthostatic blood pressures. Patient is currently on antibiotics for possible colitis. C. difficile has been ordered, but patient has not had any bowel movements as of yet suggesting an osmotic diarrhea given n.p.o. status. Patient does not have a significant leukocytosis to suggest infectious diarrhea. 2. Acute kidney injury Patient presented with a creatinine of 1.51. Patient is on lisinopril at baseline, so she would be significantly volume sensitive. Patient has responded to aggressive fluid resuscitation. No indication for renal replacement therapy. We will continue to monitor closely. 3. Fibromyalgia/neuropathy/depression/GERD Complicates care, management, recovery and prognosis. Likely okay to continue with baseline medications. Neurontin could be increased to baseline given improvement in renal function. Code Visit Inpatient E&M: 52713 Init Hosp L3
[2018-10-30] MEDS: ARIPiprazole 5 MG Tablet PO (08:43)
[2018-10-30] MEDS: DULoxetine Hcl 30 MG Capsule 90 MG PO (08:43)
[2018-10-30] MEDS: Pantoprazole Sodium 40 MG Tablet PO (08:44)
--- NOTE | 2018-10-30 09:07 | PCM.PN.HOSP ---
Patient Problems: Active and Suspected Problems Acute diarrhea (Acute) Hypovolemic shock (Acute) Dehydration (Acute) Subjective: There is a 51-year-old female with history of recent gastric sleeve procedure for morbid obesity in November 2017 came to ER with 2 days history of diarrhea and near syncopal event. Patient had mild abdominal cramps. Denies any recent antibiotic intake, travel history or sick contact. Stool is liquid, watery consistency with no obvious blood seen. Vitals/I&O's: Vital Signs Temp Pulse Resp BP Pulse Ox 97.8 F 96 18 107/81 H 97 10/30/18 09:00 10/30/18 09:00 10/30/18 09:00 10/30/18 09:00 10/30/18 09:00 Oxygen Flow Rate (L/min) 2 Oxygen Delivery Method Room Air Weight: 255 lb 4.725 oz Body Mass Index (BMI) 39.9 Finger Stick Blood Glucose 147 Intake and Output for Last 24 Hours 10/28/18 10/29/18 10/30/18 23:59 23:59 23:59 Intake Total 489 / 489 Balance 489 / 489 General: Alert, Oriented x3, Cooperative HEENT: Atraumatic, PERRLA, EOMI, Normocephalic Neck: Supple, No JVD, Negative Carotid Bruits Lungs: Clear to auscultation, Normal air movement, No rhonchi, No wheeze, No rales Cardiovascular: Regular rate, Regular Rhythm, Normal S1, Normal S2, No murmurs Abdomen: Bowel Sounds Present, Soft, Non Tender, Non-Distended Extremities: No edema, Capillary Refill Less than 3 Seconds Skin: No rashes, No breakdown Musculoskeletal: No Tenderness to Palpation of Joints or Extremities, Arthritic Changes Neurological: Cranial nerves II-XII grossly intact, Deep Tendon Reflexes 2+/4 and Symmetrical, Neuro grossly intact, Motor Exam 5/5 strength throughout Psych/Mental Status: Normal Affect, Appropriate Microbiology Past 72 Hours 10/29/18 23:35 Stool Stool Occult Blood (AMANDA) - Final Occult Blood Positive Laboratory Results 10/29/18 23:35: WBC 15.6 H, RBC 6.04 H, Hgb 16.7 H, Hct 51.6 H, MCV 85.4, MCH 27.6, MCHC 32.4, RDW Std Deviation 43.2, RDW Coeff of Omar 13.9, Plt Count 330, MPV 11.0, Immature Gran % (Auto) 0.400, Neut % (Auto) 56.2, Lymph % (Auto) 30.7, [place] % (Auto) 11.2 H, Eos % (Auto) 1.1, Baso % (Auto) 0.4, Absolute Neuts (auto) 8.8 H, Absolute Lymphs (auto) 4.79 H, Nucleated RBC % 0, Differential Comment SCANNED, Diff Path Review July, Reactive Lymphocytes 2+ 10/29/18 23:35: Sodium 137, Potassium 3.6, Chloride 102, Carbon Dioxide 28.0, Anion Gap 7, BUN 18, Creatinine 1.51 H, Estim Creat Clear Calc 41.90, Est GFR (MDRD) Af Amer 46 L, Est GFR (MDRD) Non-Af 38 L, BUN/Creatinine Ratio 11.9, Glucose 137 H, Calcium 8.8, Total Bilirubin 0.30, AST 12 L, ALT 16, Alkaline Phosphatase 96, Total Protein 7.0, Albumin 2.9 L, Globulin 4.1, Albumin/Globulin Ratio 0.7 L 10/29/18 23:35: Magnesium 2.0 10/30/18 04:15: WBC 10.7, RBC 5.16, Hgb 14.2, Hct 44.3, MCV 85.9, MCH 27.5, MCHC 32.1, RDW Std Deviation 44.0 H, RDW Coeff of Omar 13.9, Plt Count 243, MPV 10.7, Immature Gran % (Auto) 0.400, Neut % (Auto) 55.2, Lymph % (Auto) 32.0, [place] % (Auto) 11.0 H, Eos % (Auto) 0.8, Baso % (Auto) 0.6, Absolute Neuts (auto) 5.9, Absolute Lymphs (auto) 3.44, Nucleated RBC % 0 10/30/18 04:15: Sodium 142, Potassium 3.3 L, Chloride 107, Carbon Dioxide 29.0, Anion Gap 6, BUN 15, Creatinine 1.04 H, Estim Creat Clear Calc 60.83, Est GFR (MDRD) Af Amer 71, Est GFR (MDRD) Non-Af 59 L, BUN/Creatinine Ratio 14.4, Glucose 110 H, Calcium 7.8 L Current Medications Aripiprazole (Abilify) 5 mg PO DAILY [facility] Last Admin: 10/30/18 08:43 Dose: 5 mg Documented by: Dextrose (D50w Syringe) 0 gm IV X1 PRN; Protocol PRN Reason: Hypoglycemia Duloxetine HCl (Cymbalta) 90 mg PO DAILY [facility] Last Admin: 10/30/18 08:43 Dose: 90 mg Documented by: Gabapentin (Neurontin) 100 mg PO 5X/DAY [facility] Last Admin: 10/30/18 08:43 Dose: 100 mg Documented by: Glucagon () 1 mg IM .X1 PRN PRN Reason: Hypoglycemia Ciprofloxacin (Cipro) 400 mg in 200 mls @ 200 mls/hr IV Q12 [facility] Last Admin: 10/30/18 08:47 Dose: 200 mls/hr Documented by: Metronidazole (Flagyl) 500 mg in 100 mls @ 100 mls/hr IV Q8 [facility] Last Admin: 10/30/18 02:50 Dose: 100 mls/hr Documented by: Sodium Chloride () 250 mls @ 15 mls/hr IV .[id number] PRN PRN Reason: SALINE FLUSH Last Admin: 10/30/18 02:50 Dose: 15 mls/hr Documented by: Melatonin (Melatonin) 3 mg PO QHS PRN PRN PRN Reason: INSOMNIA Ondansetron HCl (Zofran) 4 mg IV Q8H PRN PRN PRN Reason: NAUSEA/VOMITING Pantoprazole Sodium (Protonix) 40 mg PO DAILY [facility] Last Admin: 10/30/18 08:44 Dose: 40 mg Documented by: Potassium Chloride (K-Dur) 20 meq PO BIDCM [facility] Stop: 10/30/18 17:01 Last Admin: 10/30/18 08:43 Dose: 20 meq Documented by: Sodium Chloride () 10 - 40 ml IV UD PRN PRN Reason: SALINE FLUSH Medical Necessity - Tobacco Use Smoking Status: Never smoker Assessment/Plan All Active Problems Acute diarrhea (Acute) Hypovolemic shock (Acute) Dehydration (Acute) Diabetes (Acute) There is a 51-year-old female with history of recent gastric sleeve procedure for morbid obesity in November 2017 is being admitted with 2 days history of diarrhea and near syncopal event. Stool is liquid, watery consistency with no obvious blood seen. No nausea or vomiting. In ER, patient was hypokalemic 82/59, heart rate 94. Received 2 L of IV fluid normal saline bolus. 1. Hypovolemic shock secondary to diarrhea, etiology unclear: Patient denies any recent dumping symptoms including easy gastric bloating, nausea or vomiting and she is compliant with small and frequent meals, avoiding high carb/sugar beverages. But she is still in duration of late dumping syndrome which generally happens after 6 months to 2 to 3 years. Leukocytosis/elevated H&H resolved probably secondary to hemoconcentration. Diarrhea does not look infective/infectious and has almost resolved. No need of antibiotic. Cipro and Flagyl discontinued 2. Acute kidney injury secondary to hypovolemia and mild hypokalemia: Prerenal etiology. Potassium is being replaced. Magnesium was 2.0. LFTs shows low albumin 2.9. 3. Diabetes mellitus type II: Glucose was 137 currently 110. Hyperglycemia is controlled Other comorbidities include GERD/anxiety and depression/fibromyalgia: Home medications continued. DVT prophylaxis: Stool for occult blood positive. Pharmacological prophylaxis contraindicated. Bilateral SCDs. The patient is hemodynamically [facility] Microbiology Past 72 Hours 10/29/18 23:35 Stool Stool Occult Blood (AMANDA) - Final Occult Blood Positive Laboratory Results 10/29/18 23:35: WBC 15.6 H, RBC 6.04 H, Hgb 16.7 H, Hct 51.6 H, MCV 85.4, MCH 27.6, MCHC 32.4, RDW Std Deviation 43.2, RDW Coeff of Omar 13.9, Plt Count 330, MPV 11.0, Immature Gran % (Auto) 0.400, Neut % (Auto) 56.2, Lymph % (Auto) 30.7, [place] % (Auto) 11.2 H, Eos % (Auto) 1.1, Baso % (Auto) 0.4, Absolute Neuts (auto) 8.8 H, Absolute Lymphs (auto) 4.79 H, Nucleated RBC % 0, Differential Comment SCANNED, Diff Path Review May foll, Reactive Lymphocytes 2+ 10/29/18 23:35: Sodium 137, Potassium 3.6, Chloride 102, Carbon Dioxide 28.0, Anion Gap 7, BUN 18, Creatinine 1.51 H, Estim Creat Clear Calc 41.90, Est GFR (MDRD) Af Amer 46 L, Est GFR (MDRD) Non-Af 38 L, BUN/Creatinine Ratio 11.9, Glucose 137 H, Calcium 8.8, Total Bilirubin 0.30, AST 12 L, ALT 16, Alkaline Phosphatase 96, Total Protein 7.0, Albumin 2.9 L, Globulin 4.1, Albumin/Globulin Ratio 0.7 L 10/29/18 23:35: Magnesium 2.0 10/30/18 04:15: WBC 10.7, RBC 5.16, Hgb 14.2, Hct 44.3, MCV 85.9, MCH 27.5, MCHC 32.1, RDW Std Deviation 44.0 H, RDW Coeff of Omar 13.9, Plt Count 243, MPV 10.7, Immature Gran % (Auto) 0.400, Neut % (Auto) 55.2, Lymph % (Auto) 32.0, [place] % (Auto) 11.0 H, Eos % (Auto) 0.8, Baso % (Auto) 0.6, Absolute Neuts (auto) 5.9, Absolute Lymphs (auto) 3.44, Nucleated RBC % 0 10/30/18 04:15: Sodium 142, Potassium 3.3 L, Chloride 107, Carbon Dioxide 29.0, Anion Gap 6, BUN 15, Creatinine 1.04 H, Estim Creat Clear Calc 60.83, Est GFR (MDRD) Af Amer 71, Est GFR (MDRD) Non-Af 59 L, BUN/Creatinine Ratio 14.4, Glucose 110 H, Calcium 7.8 L Code Visit Inpatient E&M: 99464 Subs Hosp L3
--- NOTE | 2018-10-30 11:43 | CASEMGMT ---
[place] CM Assessment Presentation: Acute diarrhea, hypovolemic shock Intro role of CM and purpose of RN CM assessment. Pt is awake, alert and able to participate in dc planning. Demographics, PCP and Pharmacy verified. Pt states she is independent, no care needs noted. PCP: Dr. Hallman Preferred Pharmacy: [facility] Insurance: [facility] eligible. Prescription Benefit: yes, through [facility] benefits LNOK: Sister Mirna Morrison Living Arrangements: Lives in one story home. States she is independent in ADL, does own shopping, cooking. Denies care needs. Transportation: Drives DME: cane, walker HHC: none Patient DC goals: Home DC PLAN: Home. PT/OT evaluations pending. Carol MATOSN RN ACM
[2018-10-30 13:01] LABS: Pathologist Review Reviewed
[2018-10-31 02:39] VITALS: BP 100/63; PULSE 76; RESP 18; TEMP 36.7; O2SAT 93
[2018-10-31] MEDS: Gabapentin 100 MG Capsule PO ×2 (06:32→10:07)
[2018-10-31 08:02] LABS: Anion Gap 7 (5-15); BUN 14 mg/dL (7-18); BUN/Creat Ratio 15.8 RATIO (10-20); Calcium,Total 8.3 mg/dL (8.5-10.1); Chloride 112 mmol/L (98-107); Creatinine, Serum 0.89 mg/dL (0.55-1.02); EST Glomerular Filtration Rate 71 mL/min (>60); Est Glom Filt Rate - Afr Amer 85 mL/min (>60); Estimated Creatinine Clearance 71.09 ml/min; Glucose 93 mg/dL (74-106); Potassium 3.8 mmol/L (3.5-5.1); Sodium Level 142 mmol/L (136-145)
--- NOTE | 2018-10-31 08:11 | PCM.PN.INT ---
Subjective: Patient did well overnight. Patient had one loose bowel movement since admission that is come back as C. difficile negative. Patient reports subjective improvement in overall condition. Patient remains on room air. General: Alert, Oriented x3, Cooperative, No apparent distress, Well developed, Well nourished, - - Morbidly obese. Speaking in full sentences. HEENT: Atraumatic, PERRLA, EOMI, Normocephalic, - - No scleral icterus or injection noted. Oral: Moist Mucosa, No Gingival or Mucosal Lesions/ Ulcerations Neck: Supple, No JVD, No Nodes, Trachea Midline Lungs: Clear to auscultation, Normal air movement, No rhonchi, No wheeze, No rales, - - Symmetric expansion. No dullness to percussion. Cardiovascular: Regular rate, Regular Rhythm, Normal S1, Normal S2, No murmurs, No rub noted, No Gallop Abdomen: Bowel Sounds Present, Soft, Non Tender, Non-Distended, Obese Extremities: No clubbing, No cyanosis, No edema Skin: No rashes, No breakdown Musculoskeletal: No Tenderness to Palpation of Joints or Extremities Lymphatic: No Cervical, Supraclavicular, or Inguinal Adenopathy Neurological: Cranial nerves II-XII grossly intact, Neuro grossly intact, Motor Exam 5/5 strength throughout Psych/Mental Status: Alert and oriented to time, place, person, mood and affect Vital Signs Temp Pulse Resp BP Pulse Ox 36.7 C 76 18 100/63 93 10/31/18 02:39 10/31/18 02:39 10/31/18 02:39 10/31/18 02:39 10/31/18 02:39 Oxygen Flow Rate (L/min) 2 Oxygen Delivery Method Room Air Weight: 119.8 kg Body Mass Index (BMI) 39.9 Finger Stick Blood Glucose 147 Orthostatic Vital Signs Start: 10/30/18 09:04 Freq: q24h Status: Active Protocol: Activity Type Activity Date Activity User E-Sign Co-Sign Detail Recorded Client Recorded Date Recorded By Document 10/30/18 09:04 [facility] [id number] 10/30/18 09:13 [facility] [place] 10/30/18 09:04 Orthostatic Vitals Standing -Blood Pressure (90/60-120/80) 118/70 -Extremity Use Left Arm -Pulse Rate (60-100) 105 H Sitting -Blood Pressure (90/60-120/80) 117/78 -Extremity Use Left Arm -Pulse Rate (60-100) 104 H Lying -Blood Pressure (90/60-120/80) 124/69 H -Extremity Use Left Arm -Pulse Rate (60-100) 92 Intake and Output for Last 24 Hours 10/29/18 10/30/18 10/31/18 23:59 23:59 23:59 Intake Total 989 / 989 300 / 300 Balance 989 / 989 300 / 300 Labs (Last 48 Hours) 10/29/18 10/29/18 10/29/18 23:35 23:35 23:35 WBC 15.6 H RBC 6.04 H Hgb 16.7 H Hct 51.6 H MCV 85.4 MCH 27.6 MCHC 32.4 RDW Std Deviation 43.2 RDW Coeff of Omar 13.9 Plt Count 330 MPV 11.0 Immature Gran % (Auto) 0.400 Neut % (Auto) 56.2 Lymph % (Auto) 30.7 [place] % (Auto) 11.2 H Eos % (Auto) 1.1 Baso % (Auto) 0.4 Absolute Neuts (auto) 8.8 H Absolute Lymphs (auto) 4.79 H Nucleated RBC % 0 Differential Comment SCANNED Diff Path Review Reviewed Reactive Lymphocytes 2+ Sodium 137 Potassium 3.6 Chloride 102 Carbon Dioxide 28.0 Anion Gap 7 BUN 18 Creatinine 1.51 H Estim Creat Clear Calc 41.90 Est GFR (MDRD) Af Amer 46 L Est GFR (MDRD) Non-Af 38 L BUN/Creatinine Ratio 11.9 Glucose 137 H Calcium 8.8 Magnesium 2.0 Total Bilirubin 0.30 AST 12 L ALT 16 Alkaline Phosphatase 96 Total Protein 7.0 Albumin 2.9 L Globulin 4.1 Albumin/Globulin Ratio 0.7 L 10/30/18 10/30/18 10/31/18 04:15 04:15 06:46 WBC 10.7 RBC 5.16 Hgb 14.2 Hct 44.3 MCV 85.9 MCH 27.5 MCHC 32.1 RDW Std Deviation 44.0 H RDW Coeff of Omar 13.9 Plt Count 243 MPV 10.7 Immature Gran % (Auto) 0.400 Neut % (Auto) 55.2 Lymph % (Auto) 32.0 [place] % (Auto) 11.0 H Eos % (Auto) 0.8 Baso % (Auto) 0.6 Absolute Neuts (auto) 5.9 Absolute Lymphs (auto) 3.44 Nucleated RBC % 0 Differential Comment Diff Path Review Reactive Lymphocytes Sodium 142 142 Potassium 3.3 L 3.8 Chloride 107 112 H Carbon Dioxide 29.0 23.0 Anion Gap 6 7 BUN 15 14 Creatinine 1.04 H 0.89 Estim Creat Clear Calc 60.83 71.09 Est GFR (MDRD) Af Amer 71 85 Est GFR (MDRD) Non-Af 59 L 71 BUN/Creatinine Ratio 14.4 15.8 Glucose 110 H 93 Calcium 7.8 L 8.3 L Magnesium Total Bilirubin AST ALT Alkaline Phosphatase Total Protein Albumin Globulin Albumin/Globulin Ratio Microbiology 10/30/18 11:05 Stool C. difficile DNA Amplification - Final 10/29/18 23:35 Stool Stool Occult Blood (AMANDA) - Final Occult Blood Positive Medical Necessity - Tobacco Use Smoking Status: Never smoker Assessment/Plan All Active Problems Acute diarrhea (Acute) Hypovolemic shock (Acute) Dehydration (Acute) Diabetes (Acute) RECOMMENDATIONS: 1. Okay to discontinue IV fluids from my perspective 2. Defer to hospitalist on diarrhea evaluation 3. Consider discontinuation of antibiotics 4. Hemodynamically stable on room air. Will sign off from a critical care perspective IMPRESSIONS: 1. Hypovolemic shock secondary to acute diarrhea Exact etiology of acute diarrhea is unclear at this time. Patient is not reporting nausea and vomiting to suggest gastroenteritis. Patient does have a history of gastric sleeve procedure in the past, so dumping would be a consideration. Patient's hydrochlorothiazide and lisinopril have been held given lower blood pressures. Patient has responded well to volume resuscitation. Could restart baseline medications in a stepwise fashion. 2. Acute kidney injury Resolved. Patient presented with a creatinine of 1.51. Patient is on lisinopril at baseline, so she would be significantly volume sensitive. Patient has responded to aggressive fluid resuscitation. No indication for renal replacement therapy. We will continue to monitor closely. 3. Fibromyalgia/neuropathy/depression/GERD Complicates care, management, recovery and prognosis. Likely okay to continue with baseline medications. Neurontin could be increased back to baseline given improvement in renal function. Code Visit Inpatient E&M: 20447 Subs Hosp L2
[2018-10-31 08:30] VITALS: BP 116/71; PULSE 99; RESP 16; TEMP 36.6; O2SAT 93
[2018-10-31] MEDS: DULoxetine Hcl 30 MG Capsule 90 MG PO (10:07)
[2018-10-31] MEDS: ARIPiprazole 5 MG Tablet PO (10:07)
--- NOTE | 2018-10-31 10:39 | DCINST_ITS ---
- Discharge Diagnoses Current Active Problems: Current Active and Chronic Problems Acute diarrhea (Acute) Hypovolemic shock (Acute) Dehydration (Acute) You will use the following diet at home:: Regular Your food should be the consistency of: Regular Discharge Activity: May Not Drive - 3 to 5 days or if patient feels weak/dehydrated Call your doctor if you observe: Fever of 101 or Higher, Inability to urinate, Inability to have a bowel movement, Shortness of breath, Dizziness, Fainting spells, Swelling in the ankles Additional Instructions: Advised to restart antihypertensive medication gradually. Starting with lisinopril and then low-dose HCTZ then increase as per blood pressure. Follow with PCP for more instructions. Allergies/Adverse Reactions: Allergies amoxicillin trihydrate [From Augmentin] Allergy (Verified 10/29/18 23:49) Unknown potassium clavulanate [From Augmentin] Allergy (Verified 10/29/18 23:49) Unknown Medications to take at Discharge Aripiprazole [Abilify] 5 mg PO DAILY 03/10/15 cycloBENZAPRine HCl [Flexeril] 10 mg PO DAILY PRN 03/10/15 Pantoprazole Sodium [Protonix] 40 mg PO DAILY 11/30/15 Duloxetine Hcl [Cymbalta] 90 mg PO DAILY 01/02/17 Gabapentin [Neurontin] 300 mg PO 5X/DAY 09/22/17 Hydrochlorothiazide [Hctz] 25 mg PO DAILY #0 10/31/18 Lisinopril [Zestril] 10 mg PO DAILY #0 10/31/18 Primary Care Physician: Amanda Hallman MD [Primary Care Provider] - Please follow up with your Primary Care Physician in: in 1 week for, EHEC shiga like toxin Test Results: Test results from this visit will be discussed in further detail at your follow- up appointment, if applicable.
--- NOTE | 2018-10-31 10:41 | PCM.DC.SUM ---
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 Stool is liquid, watery consistency with no obvious blood seen. No nausea or vomiting. In ER, patient was hypokalemic 82/59, heart rate 94. Received 2 L of IV fluid normal saline bolus. 1. Hypovolemic shock secondary to diarrhea, STEC/EHEC enterocolitis: Leukocytosis has resolved. Patient had 15.6 thousand leukocytes, monocytes 11.2%. This got resolved 10.7 thousand. H&H was hemoconcentrated. Stool for occult blood positive. Enteric bacterial D panel shows that she got toxin 1. This is due to SPEC infection which was discussed in detail with the patient. Patient further admitted that she had outside meat food in restaurant couple days ago. Antibiotic is contraindicated in SPEC as there is risk of HUS. Patient symptoms have resolved. Patient wants to go home. Patient was advised to start antibiotic with lisinopril if her blood pressure if systolic goes more than 120 MMHG at least 2 times and and then STEP WAY manner to add HCTZ 12.5 mg in 2 to 3 days and then full dose 25 mg if still elevated in about 1 week time. Please consult PCP for further instruction for hypertension. Follow with PCP in 1 week 2. Acute kidney injury secondary to hypovolemia and mild hypokalemia: Prerenal etiology. BEST resolved. Hypokalemia was corrected. Magnesium was 2.0. LFTs shows low albumin 2.9. 3. Diabetes mellitus type II: Glucose was 137 currently 110. Hyperglycemia is controlled Other comorbidities include GERD/anxiety and depression/fibromyalgia: Home medications continued. DVT prophylaxis: Stool for occult blood positive. Pharmacological prophylaxis contraindicated. Bilateral SCDs. Discharge medication reconciliation done. Discharge follow-up instructions completed. Discharge process discussed with the patient and all questions were answered to patient's satisfaction. Discharge medication especially antihypertensive medication discussed in detail with the patient. Total time spent, exact 35 minutes on discharge meds reconciliation, examination, review of imaging and blood test and discussion with the patient on follow-up instructions. Subjective: Patient is well-hydrated. But he still seems weak. Blood pressure has recovered 116/71. Antihypertensive medications, lisinopril and HCTZ are on hold. This patient enteric bacteriology panel shows a Shiga-like toxin, STEC. Patient wants to go home. - Physical Exam General: Alert, Oriented x3, Cooperative HEENT: Atraumatic, PERRLA, EOMI, Normocephalic Neck: Supple, No JVD, Negative Carotid Bruits Lungs: Clear to auscultation, Normal air movement, No rhonchi, No wheeze, No rales Cardiovascular: Regular rate, Regular Rhythm, Normal S1, Normal S2, No murmurs Abdomen: Bowel Sounds Present, Soft, Non Tender, Non-Distended Extremities: No edema, Capillary Refill Less than 3 Seconds Skin: No rashes, No breakdown Musculoskeletal: No Tenderness to Palpation of Joints or Extremities, Arthritic Changes Neurological: Cranial nerves II-XII grossly intact, Deep Tendon Reflexes 2+/4 and Symmetrical, Neuro grossly intact, Motor Exam 5/5 strength throughout Psych/Mental Status: Normal Affect, Appropriate Vital Signs Temp Pulse Resp BP Pulse Ox 97.8 F 99 16 116/71 93 10/31/18 08:30 10/31/18 08:30 10/31/18 08:30 10/31/18 08:30 10/31/18 08:30 Oxygen Flow Rate (L/min) 2 Oxygen Delivery Method Room Air Weight: 264 lb 1.82 oz Body Mass Index (BMI) 39.9 Finger Stick Blood Glucose 147 Orthostatic Vital Signs Start: 10/30/18 09:04 Freq: q24h Status: Active Protocol: Activity Type Activity Date Activity User E-Sign Co-Sign Detail Recorded Client Recorded Date Recorded By Document 10/30/18 09:04 [facility] [place] [id number] 10/30/18 09:13 [facility] [place] 10/30/18 09:04 Orthostatic Vitals Standing -Blood Pressure (90/60-120/80) 118/70 -Extremity Use Left Arm -Pulse Rate (60-100) 105 H Sitting -Blood Pressure (90/60-120/80) 117/78 -Extremity Use Left Arm -Pulse Rate (60-100) 104 H Lying -Blood Pressure (90/60-120/80) 124/69 H -Extremity Use Left Arm -Pulse Rate (60-100) 92 Intake and Output for Last 24 Hours 10/29/18 10/30/18 10/31/18 23:59 23:59 23:59 Intake Total 989 / 989 300 / 300 Balance 989 / 989 300 / 300 Microbiology Past 72 Hours 10/30/18 11:05 Enteric Bacteriology - Final Stool Shiga Toxin 1 10/30/18 11:05 C. difficile DNA Amplification - Final Stool 10/29/18 23:35 Stool Occult Blood (AMANDA) - Final Stool Occult Blood Positive Laboratory Tests Past 24 Hrs 10/29/18 10/31/18 23:35 06:46 Diff Path Review Reviewed Sodium 142 Potassium 3.8 Chloride 112 H Carbon Dioxide 23.0 Anion Gap 7 BUN 14 Creatinine 0.89 Estim Creat Clear Calc 71.09 Est GFR (MDRD) Af Amer 85 Est GFR (MDRD) Non-Af 71 BUN/Creatinine Ratio 15.8 Glucose 93 Calcium 8.3 L Discharge Activity: May Not Drive - 3 to 5 days or if patient feels weak/dehydrated Call your doctor if you observe: Fever of 101 or Higher, Inability to urinate, Inability to have a bowel movement, Shortness of breath, Dizziness, Fainting spells, Swelling in the ankles Home Medications: Medications to take at Discharge Aripiprazole [Abilify] 5 mg PO DAILY 03/10/15 cycloBENZAPRine HCl [Flexeril] 10 mg PO DAILY PRN 03/10/15 Pantoprazole Sodium [Protonix] 40 mg PO DAILY 11/30/15 Duloxetine Hcl [Cymbalta] 90 mg PO DAILY 01/02/17 Gabapentin [Neurontin] 300 mg PO 5X/DAY 09/22/17 Hydrochlorothiazide [Hctz] 25 mg PO DAILY #0 10/31/18 Lisinopril [Zestril] 10 mg PO DAILY #0 10/31/18 Primary Care Physician: Amanda Hallman MD [Primary Care Provider] - Please follow up with your Primary Care Physician in: in 1 week for, EHEC shiga like toxin Medical Necessity - Tobacco Use Smoking Status: Never smoker Meaningful Use Info Meaningful Use Diagnoses (Choose all that apply): None applicable Code Visit Inpatient E&M: 79028 Disch Hosp
--- NOTE | 2018-11-02 14:49 | CASEMGMT ---
ESTIVEN DC PHONE CALL DC DATE: 10/31/18 DC Disposition: Home Diagnosis on Discharge: Acute diarrhea, hypovolemia LACE/STRATA:11/24 Attempted call to phone. No answer. Carol MATOSN RN [facility] [address]
== END 2018-10-31 11:59 | disposition home or self-care (01) | DRG 371 ==
LOC: ED 10-30 00:21 → ICU 10-30 00:54 → MS3 10-30 11:55 → ICU 11-02 10:04 → MS3 11-02 10:04
PROVIDERS: Admitting Provider Hospitalist; Emergency Provider Emergency Medicine; Family Provider Internal Medicine; PCP Internal Medicine; Visit Provider Internal Medicine
DX: A04.4 Other intestinal Escherichia coli infections (principal); R57.1 Hypovolemic shock; N17.9 Acute kidney failure, unspecified; B96.21 Shiga toxin-producing Escherichia coli [E. coli] [STEC] O157 as the cause of diseases classified elsewhere; K21.9 Gastro-esophageal reflux disease without esophagitis; M79.7 Fibromyalgia; G62.9 Polyneuropathy, unspecified; E66.01 Morbid (severe) obesity due to excess calories; E87.6 Hypokalemia; I10 Essential (primary) hypertension; F32.9 Major depressive disorder, single episode, unspecified; E11.9 Type 2 diabetes mellitus without complications; Z98.84 Bariatric surgery status; Z68.39 Body mass index [BMI] 39.0-39.9, adult; G47.33 Obstructive sleep apnea (adult) (pediatric); M19.90 Unspecified osteoarthritis, unspecified site; M47.817 Spondylosis without myelopathy or radiculopathy, lumbosacral region
CPT/HCPCS: 36415; 80048; 80053; 82274; 83735; 85025; 87177; 87209; 87493; 87506; 93005; 99283; J7030; J7050; J7120; A4216; J0744

== ENCOUNTER 2020-12-30 17:16 | Inpatient (IN) | payer MEDICARE, SELFPAY ==
[2020-12-30] VITALS (8 sets, daily range): BP systolic 102–162; BP diastolic 63–95; PULSE 88–107; RESP 14–18; TEMP 35.6–37.7; O2SAT 92–96; BMI 36.3; BMI 36.9
[2020-12-30 18:09] LABS: Mucous, Urine 0 SEEN /hpf (<or=2+)
[2020-12-30 18:11] LABS: Color, Urine Amber (Yellow); Glucose, Dipstick Normal (Normal); Ketone-Dipstick Negative (Negative); Leukocyte Esterase-Dipstick 500 /ul (Negative); Nitrite-Dipstick Negative (Negative); Occult Blood-Urine 250 /ul (Negative); Protein-Dipstick 100 mg/dl (Negative); Urine Bilirubin Dipstick Negative (Negative); Urine Clarity Cloudy (Clear); Urine Urobilinogen 1 mg/dl (Normal)
--- NOTE | 2020-12-30 18:30 | CT_ITS ---
INDICATION: abd pain EXAMINATION: CT Abdomen And Pelvis W/ Contrast Injection TECHNIQUE: Helically acquired images were obtained of the abdomen and pelvis after IV contrast. A radiation dose optimization technique was used for this scan. IV Contrast dosage and agent: IV 50mL Isovue-370 Oral contrast: None. COMPARISON: 03/10/2015. FINDINGS: Visualized lung bases: Bibasilar atelectasis. Liver: Unremarkable Gallbladder: Surgically absent. Spleen: Unremarkable Pancreas: Unremarkable Adrenal Glands: Unremarkable Kidneys: Nonspecific perinephric fat stranding on the left. Urothelial enhancement of the left ureter. Vasculature: Mild scattered aortoiliac atherosclerotic calcifications. GI Tract: Status post gastric bypass surgery. Scattered colonic diverticula. Lymphadenopathy: None Peritoneum: No ascites. Bladder: Unremarkable Reproductive organs: Bilateral tubal ligation. Bones/Soft tissues: There are diffuse degenerative changes of the spine. CT/Abdomen/Pelvis W IV Cont ONLY IMPRESSION: Nonspecific perinephric fat stranding on the left with urothelial enhancement of the left ureter. This could be seen in ascending urinary tract infection. No obstructing stone or hydronephrosis. Electronically Signed: Wilberto Whalen MD at 20:53 EDT Tel , Service support ,
--- NOTE | 2020-12-30 18:32 | EDS_ITS ---
HPI History of Present Illness Chief Complaint: Complaint Informant: patient Narrative Narrative: Patient presents with multiple complaints. Patient states that 2 weeks ago she started with some nasal congestion and thought it was just a cold. That is still present but a little better. She never developed cough or trouble breathing. She did have some frequent urination. She had mild dysuria. She had mild abdominal pain in the lower abdomen. That has been waxing and waning but seems to be worsening over the last few days. Over the last 2 3 days she describes incontinence. It sounds like she knows she is about to urinate but she cannot get to the bathroom fast enough and has leakage of urine. This is not something she normally has. She also has worsening left lower quadrant pain. She thinks she might have been told she has diverticulitis somewhere in the past. No documented fevers or chills. She does have decreased appetite. She gets nauseated with eating but is never vomited. No diarrhea or blood in the stool. Patient states her only medical condition currently is fibromyalgia. Her chart shows different diagnoses but a lot of these may have resolved after gastric bypass and weight loss. PFSH PFSH Home Medications aripiprazole 5 mg PO DAILY 03/10/15 [History Last Taken 10/29/18] cyclobenzaprine 10 mg PO DAILY PRN 03/10/15 [History Last Taken 3 Days Ago ~10/26/18] pantoprazole 40 mg PO DAILY 11/30/15 [History Last Taken 10/29/18] duloxetine 90 mg PO DAILY 01/02/17 [History Last Taken 10/29/18] gabapentin [Neurontin] 300 mg PO 5X/DAY 09/22/17 [History Last Taken 10/29/18] hydrochlorothiazide 25 mg PO DAILY #0 10/31/18 [Rx Last Taken 10/29/18] lisinopril 10 mg PO DAILY #0 10/31/18 [Rx Last Taken 10/29/18] Allergy/AdvReac Type Severity Reaction Status Date / Time amoxicillin trihydrate Allergy Unknown Verified 12/30/20 17:18 [From Augmentin] potassium clavulanate Allergy Unknown Verified 12/30/20 17:18 [From Augmentin] Social History Smoking Status: Never smoker ROS ROS ED Constitutional Constitutional ED: Denies chills or fever(s) Eyes Eyes: Denies blurry vision ENT ENT ED: Reports rhinorrhea; Denies sore throat Cardiovascular Cardiovascular: Denies chest pain or palpitations Respiratory/Chest Respiratory/Chest: Denies cough, dyspnea or sputum Gastrointestinal Gastrointestinal: Reports abdominal pain and nausea; Denies constipation or diarrhea Genitourinary Genitourinary ED: Reports dysuria and urinary frequency; Denies hematuria Musculoskeletal Musculoskeletal: Denies back pain Integumentary Denies rash Neurologic Neurologic: Denies headache(s) Endocrine Endocrinology: Denies polydipsia or polyuria Allergic/Immunologic Allergic/Immunologic ED: Denies urticaria EXAM Physical Exam Const Vital Signs: 12/30/20 17:18 12/30/20 17:20 Temperature 96.1 F L 96.1 F L Temperature Source Temporal Temporal Pulse Rate 107 H 107 H Respiratory Rate 14 14 Blood Pressure 122/86 H 122/86 H Blood Pressure Mean 98 98 Pulse Ox 92 92 Oxygen Delivery Method Room Air Room Air Positive well nourished, well developed and obese General Appearance ED: well developed and NAD Nutritional Appearance: obese HEENT Reports dry mucous membranes Mouth ED: Yes dry mucous membranes Mouth: dry mucous membranes Eyes General Eye ED: Negative for pale conjunctiva or scleral icterus Resp normal respiratory effort and clear to auscultation bilaterally Auscultation: Negative for rales, rhonchi or wheezes Cardio regular rate, regular rhythm and no murmurs GI normal to inspection, nondistended, normoactive bowel sounds GI Narrative: Patient does have some very mild tenderness to the left lower q uadrant. No rebound or guarding. No real suprapubic tenderness. No CVA tenderness. Palpation: soft Back/Spine no CVA tenderness Extremity normal to inspection Neuro oriented x3 Sensorium / Orientation: alert Psych mental status grossly normal Skin no rashes or lesions noted MDM MDM Lab Data Labs: Laboratory Results - last 24 hr 12/30/20 17:55 Urine Color Asmita Urine Clarity Cloudy Urine pH 5.0 Ur Specific [place] 1.020 Urine Protein 100 H Urine Glucose (UA) Normal Urine Ketones Negative Urine Occult Blood 250 H Urine Nitrite Negative Urine Bilirubin Negative Urine Urobilinogen 1 H Ur Leukocyte Esterase 500 H Discharge Plan Triage Chief Complaint: Complaint ED Provider: Kenan Tejada Dx/Rx/DC Orders Prescriptions: No Action cyclobenzaprine 10 MG tablet 10 mg PO DAILY PRN (Reason: Muscle Spasm) RF: 0 aripiprazole 2 MG tablet 5 mg PO DAILY RF: 0 pantoprazole 40 MG tablet 40 mg PO DAILY RF: 0 duloxetine 60 MG capsule 90 mg PO DAILY RF: 0 gabapentin [Neurontin] 100 MG capsule 300 mg PO 5X/DAY RF: 0 lisinopril 10 MG tablet 10 mg PO DAILY Qty: 0 RF: 0 hydrochlorothiazide 25 MG tablet 25 mg PO DAILY Qty: 0 RF: 0 Primary Care Provider: Amanda Hallman
[2020-12-30 18:34] LABS: Red Blood Cells-Urine 50-100 SEEN /hpf (0-5); Squamous Epithelial Cells - UA 5-10 SEEN /hpf (5-10); White Blood Cells >100 SEEN /hpf (0-5)
[2020-12-30 18:35] LABS: Bacteria 1+ /hpf (None Seen)
[2020-12-30] MEDS: 0.9% Normal Saline 1,000 ML 1000 ML IV (18:49)
[2020-12-30] MEDS: Morphine 4 MG/ML Syringe IV (18:49)
[2020-12-30] MEDS: Ondansetron 4 MG/2 ML Vial IV (18:50)
[2020-12-30] MEDS: Ciprofloxacin 400 MG/200 ML BAG 200 MG IV (18:59)
[2020-12-30 19:01] LABS: Anion Gap 9 (5-15); BUN 18 mg/dL (7-18); BUN/Creat Ratio 12.9 RATIO (10-20); Chloride 102 mmol/L (98-107); EST Glomerular Filtration Rate 41 mL/min (>60); Est Glom Filt Rate - Afr Amer 50 mL/min (>60); Estimated Creatinine Clearance 40.38 ml/min; Glucose 131 mg/dL (74-106); Potassium 3.3 mmol/L (3.5-5.1); Sodium Level 139 mmol/L (136-145)
[2020-12-30 19:13] LABS: Absolute Neutrophil Count 20.4 X10^3/uL (2.0-7.7); Basophil# 0.07 X10^3/uL; Basophil% 0.3 % (0-1); Eosinophil# 0.02 X10^3/uL; Eosinophils% 0.1 % (0-5); Hematocrit 48.3 % (37-47); Hemoglobin 15.3 g/dL (12.0-15.0); Lymphocyte % 9.8 % (19-41); Mean Corp Hgb Conc 31.7 g/dL (32-36); Mean Corpuscular Hgb 27.9 pg (27.0-32.0); Mean Platelet Vol. 12.1 fl (6.2-12.0); Monocyte# 1.56 X10^3/uL; Monocyte% 6.3 % (0-10); NRBC Flagged by Analyzer 0 % (0-5); Neutrophil # 20.37 X10^3/uL (2.7-7.7); Neutrophil % 82.9 % (47-70); POSITIVE DIFFERENTIAL YES; Platelet Count 287 K/mm3 (150-450); RBC Distribution Width CV 12.9 % (11.6-14.6); RBC Distribution Width SD 41.9 fl (35.1-43.9); Red Blood Count 5.49 M/mm3 (4.2-5.4); White Blood Count 24.6 K/mm3 (4.4-11.0)
[2020-12-30 19:16] LABS: Differential Indicated SCAN CRITERIA MET
[2020-12-30 20:21] LABS: Differential Comment SCANNED
[2020-12-30] MEDS: proMETHazine 25 MG/ML Syringe 12.5 MG IM (21:27)
--- NOTE | 2020-12-30 22:29 | PCM.HP.STD ---
HPI - General General Date of Admission: 12/30/20 HPI Janeen KHAN, is a 55 F who presented to the emergency department [facility] on 12/01/2020 with a chief complaint of dysuria and frequent urination. She states that approximately 2 weeks ago she started having some nasal congestion which she has just a bit of residual symptoms at this time and is overall better from that aspect but over the last 2 to 3 days developed frequent urination with dysuria, fever, chills, mild suprapubic abdominal pain and left lower quadrant and left flank pain that has been waxing and waning but worsening over the last 24 to 48 hours. She also indicates that she has had about 2 to 3 days of urinary urgency with periods of incontinence secondary to extreme urgency. She indicates she does not have frequent urinary tract infections or issues on a regular basis. She is had some nausea with one episode of emesis last evening. Her nausea has continued but no further emesis in the last 24 hours. She had decreased appetite and decreased p.o. intake. She indicates her only chronic medical conditions are depression and fibromyalgia and she does have a history of gastric bypass which resulted resolution of her hypertension, hyperlipidemia, and diabetes. She has been afebrile throughout her ED stay with a max temperature of 99.6 she was initially mildly tachycardic but this has improved since she has been hydrated with IV fluids. Her blood pressures are stable. She has a marked leukocytosis with a white count of 24.6, and erythrocytosis with hemoglobin of 15.3 and a notable left shift. I suspect some of these elevations are related to infection but also secondary to hemoconcentration. Her BMP shows hypokalemia with potassium of 3.3, acute kidney injury with a serum creatinine of 1.40 (baseline 0.9-1.1). She is a mild lactic acid elevation at 3.7. Her UA is consistent with infection. Given her abdominal and flank pain a CT of her abdomen and pelvis was performed and showed nonspecific left perinephritic stranding with urothelial enhancement of the left ureter concerning for pyelonephritis and a sending urinary tract infection. She was given ciprofloxacin in the emergency department admission was was requested. Per discussion with her per the patient she is currently only taken aripiprazole, duloxetine, and Protonix. She was able to be taken off her antihypertensives and diabetic medications after her John-en-Y gastric bypass and weight loss. [facility] Medical History (Updated 12/30/20 @ 22:[address] Katrin Sanchez DO) Depression Fibromyalgia Home Medications aripiprazole 5 mg PO DAILY 03/10/15 [History Last Taken 10/29/18] cyclobenzaprine 10 mg PO DAILY PRN 03/10/15 [History Last Taken 3 Days Ago ~10/26/18] duloxetine 90 mg PO DAILY 01/02/17 [History Last Taken 10/29/18] gabapentin [Neurontin] 300 mg PO 5X/DAY 09/22/17 [History Last Taken 10/29/18] ferrous sulfate [FeroSul] 325 mg PO DAILY 12/30/20 [History Last Taken 12/30/20] Allergy/AdvReac Type Severity Reaction Status Date / Time amoxicillin trihydrate Allergy Unknown Verified 12/30/20 17:18 [From Augmentin] potassium clavulanate Allergy Unknown Verified 12/30/20 17:18 [From Augmentin] Family History (Updated 12/30/20 @ 22:[address] Katrin Sanchez DO) Other Diabetes Hypertension Surgical History (Updated 12/30/20 @ 22:47 by Terrence Russ) H/O tubal ligation History of cholecystectomy History of John-en-Y gastric bypass Social History (Updated 12/30/20 @ 22:[address] Katrin Sanchez DO) Smoking Status: Never smoker alcohol intake: current alcohol intake frequency: holidays/special occasions only substance use type: does not use ROS Constitutional Constitutional: Reports anorexia, chills, fatigue, fever(s), malaise and weakness; Denies change in weight, night sweats or other Eyes Eyes: Denies blurry vision, change in eye color, change in vision, discharge from eye(s), double vision, erythema, eye pain, loss of vision or other ENT HEENT: Reports nasal congestion, nasal discharge and post nasal drip; Denies abnormal hearing, dysphagia, ear pain, epistaxis, headache(s), hearing loss, sinus pressure, sore throat or other Cardiovascular Cardiovascular: Denies chest pain, claudication, dyspnea on exertion, edema, lightheadedness, orthopnea, palpitations, paroxysmal nocturnal dyspnea, rapid heart rate, syncope or other Respiratory/Chest Respiratory/Chest: Denies cough, dyspnea, excessive phlegm production, hemoptysis, productive cough, shortness of breath at rest, shortness of breath with exertion, wheezing or other Gastrointestinal Gastrointestinal: Reports abdominal pain; Denies coffee ground emesis, constipation, diarrhea, dyspepsia, hematemesis, hematochezia, loose stools, melena, nausea, vomiting or other Genitourinary Genitourinary: Reports burning urination, dysuria, urinary frequency, urinary incontinence and urinary urgency; Denies difficulty urinating, hematuria, nocturia, urinary hesitancy or other Musculoskeletal Musculoskeletal: Reports joint pain, joint stiffness and myalgias; Denies arthralgias, back pain, joint swelling, neck pain or other Neurologic Neurologic: Denies abnormal gait, abnormal speech, confusion, disequilibrium, dizziness, focal weakness, headache(s), numbness, paresthesias, seizure-like activity, seizures, syncope, tingling, tremor(s) or other Psychiatric Psychiatric: Reports anxiety and depression; Denies homicidal ideation, suicidal ideation or other Endocrine Endocrinology: Denies change in body appearance, cold intolerance, excessive sweating, heat intolerance, polydipsia, polyuria or other Hematologic/Lymphatic Hematologic/Lymphatic: Denies anemia, easy bleeding, easy bruising, lymphadenopathy or other Allergic/Immunologic Allergic/Immunologic: Denies rhinitis, hives, eczemia, asthma or other Vital Signs Vital Signs Vital Signs: 12/30/20 17:18 12/30/20 17:20 12/30/20 18:20 Temperature 96.1 F L 96.1 F L 96.1 F L Temperature Source Temporal Temporal Temporal Pulse Rate 107 H 107 H 107 H Respiratory Rate 14 14 14 Blood Pressure 122/86 H 122/86 H 122/86 H Blood Pressure Mean 98 98 98 Pulse Ox 92 92 92 Oxygen Delivery Method Room Air Room Air Room Air 12/30/20 20:16 12/30/20 21:13 12/30/20 22:03 Temperature 97.7 F L 99.6 F H 99.6 F H Temperature Source Oral Oral Oral Pulse Rate 88 89 89 Respiratory Rate 18 18 18 Blood Pressure 155/95 H 162/81 H 162/81 H Blood Pressure Mean 115 108 108 Pulse Ox 95 96 96 Oxygen Delivery Method Room Air Room Air Room Air Weight Weight: 98.9 kg Body Mass Index (BMI) 36.3 Physical Exam Const alert, oriented x3, no apparent distress and well nourished Constitutional Narrative: White middle-aged obese female sitting up in bed, appears ill but nontoxic, pleasant, no acute distress General Appearance: cooperative HEENT normocephalic, head/scalp atraumatic and hearing grossly normal bilaterally HEENT Narrative: Several missing teeth, dry mucous membranes, Mallampati 2, no thrush Eyes PERRL, EOMs intact bilaterally and conjunctivae normal Eyes Narrative: No scleral icterus Neck no lymphadenopathy, supple, no JVD and no carotid bruits Neck Narrative: trachea midline BiPAP back system so let me look at his thanks bye Resp normal respiratory effort, no retractions, no use of accessory muscles and clear to auscultation bilaterally Auscultation: Negative for crackles, rales, rhonchi or wheezes Cardio regular rhythm, S1 normal heart sound, S2 normal heart sound, no murmurs, no rub, no gallops, no clicks and no JVD GI normal to inspection, nondistended, normoactive bowel sounds, soft to palpation and non-distended Palpation: tender LLQ, suprapubic and other (Blank) Extremity normal to inspection, full ROM and no clubbing, cyanosis or edema Peripheral Pulses: Yes pulses 2+ throughout Skin no wounds, skin turgor normal, no jaundice, no petechiae and no mottling Skin Narrative: Patches of dry erythematous rash on bilateral elbows Neuro oriented x3, CN's II-XII intact bilaterally, moves all extremities and no focal motor deficits Sensorium / Orientation: awake and alert Speech: speech normal Motor Exam: strength 5/5 throughout Psych Psych Narrative: Affect is slightly flat Results Lab / Micro Data Attestation: I reviewed the patient's lab results. Result Diagrams: 12/30/20 17:50 12/30/20 17:50 Labs: Laboratory Results - last 24 hr 12/30/20 17:50: WBC 24.6 H, RBC 5.49 H, Hgb 15.3 H, Hct 48.3 H, MCV 88.0, MCH 27.9, MCHC 31.7 L, RDW Std Deviation 41.9, RDW Coeff of Omar 12.9, Plt Count 287, MPV 12.1 H, Immature Gran % (Auto) 0.600, Neut % (Auto) 82.9 H, Lymph % (Auto) 9.8 L, [place] % (Auto) 6.3, Eos % (Auto) 0.1, Baso % (Auto) 0.3, Absolute Neuts (auto) 20.4 H, Absolute Lymphs (auto) 2.40, Nucleated RBC % 0, Differential Comment SCANNED, Diff Path Review July12/30/20 17:50: Sodium 139, Potassium 3.3 L, Chloride 102, Carbon Dioxide 28.0, Anion Gap 9, BUN 18, Creatinine 1.40 H, Estim Creat Clear Calc 40.38, Est GFR (MDRD) Af Amer 50 L, Est GFR (MDRD) Non-Af 41 L, BUN/Creatinine Ratio 12.9, Glucose 131 H, Calcium 9.0 12/30/20 17:55: Urine Color Asmita, Urine Clarity Cloudy, Urine pH 5.0, Ur Specific [place] 1.020, Urine Protein 100 H, Urine Glucose (UA) Normal, Urine Ketones Negative, Urine Occult Blood 250 H, Urine Nitrite Negative, Urine Bilirubin Negative, Urine Urobilinogen 1 H, Ur Leukocyte Esterase 500 H, Urine RBC 50-100 SEEN, Urine WBC >100 SEEN, Ur Squamous Epith Cells 5-10 SEEN, Urine Bacteria 1+, Urine Mucus 0 SEEN Micro: Microbiology 12/30/20 18:55 Nasal Secretion SARS-CoV-2 Antigen (Rapid) - Final Radiology Impression Abdomen/Pelvis CT 12/30/20 18:30 IMPRESSION: Nonspecific perinephric fat stranding on the left with urothelial enhancement of the left ureter. This could be seen in ascending urinary tract infection. No obstructing stone or hydronephrosis. Electronically Signed: Wilberto Whalen MD at 20:53 EDT Tel , Service support , Assessment & Plan Assessment/Plan (1) Pyelonephritis: (2) Dehydration: (3) Sepsis: PLAN: Sepsis secondary to pyelonephritis -Meets sepsis criteria with elevated white count, tachycardia, BEST, lactic acidosis at 3.7 -Sepsis order set utilized -Repeat lactic acid -Check blood cultures -Urine cultures pending -IV ciprofloxacin given urinary source -Bolus at 30 mg/kg with patient to receive an additional 2 L and then run IV fluids as ordered -Patient is hemodynamically stable at this time Lactic acidosis -Suspect this is related to acute dehydration and infection -IV fluids ordered -Repeat per protocol BEST -Baseline creatinine appears to be 0.9-1.1 -Current serum creatinine is 1.4 -Anticipate improvement with IV fluids -CT of abdomen pelvis shows no obstruction -Repeat BMP in a.m. Hypokalemia -P.o. potassium 40 mill equivalents x1 dose -Repeat BMP in a.m. -Check a.m. magnesium Nausea and vomiting -Likely related to acute infection -As needed Zofran available Leukocytosis -Secondary to sepsis/infection -Repeat CBC in a.m. and monitor clinically Erythrocytosis -That this is related to hemoconcentration -Baseline hemoglobin appears to be between 14 and 14.5 -Repeat CBC in a.m. Depression/fibromyalgia -Continue aripiprazole -Continue Cymbalta GERD -Continue Protonix Obesity -History of John-en-Y gastric bypass -Initiate vitamins once verified DVT prophylaxis -Heparin 3 times daily with BEST CODE STATUS -Full code Charges/Coding Visit Charges Inpatient E&M: 86836 Init Hosp L3
[2020-12-30 22:34] LABS: Lactic Acid 3.7 mmol/L (0.4-1.9)
--- NOTE | 2020-12-30 23:13 | PCS.PANDOC ---
PANDEMIC DOCUMENTATION INITIATED: Date: 12/30/20 Time: 2300
[2020-12-30] MEDS: 0.9% Normal Saline 1,000 ML 999 ML IV (23:45)
[2020-12-30] MEDS: Morphine 2 MG/ML Syringe IV (23:47)
[2020-12-30] MEDS: Heparin Injection (Vial) 5,000 UNIT/ML VIAL 5000 UNIT SC (23:47)
[2020-12-30] MEDS: 0.9% Saline Lock 10 ML Syringe IV (23:55)
[2020-12-30] MEDS: Potassium Chloride Oral Tablet 20 MEQ 40 MEQ PO (23:55)
[2020-12-31] MEDS: 0.9% Normal Saline 1,000 ML 999 ML IV (00:53)
[2020-12-31 01:54] LABS: Reflex Lactate? Y
[2020-12-31] MEDS: 0.9% Normal Saline 1,000 ML 100 ML IV ×3 (02:03→23:49)
[2020-12-31 02:34] LABS: Basophil# 0.06 X10^3/uL; Lymphocyte # 0.98 X10^3/ul (0.83-4.51); Mean Corp Hgb Conc 32.5 g/dL (32-36); Mean Corpuscular Hgb 28.3 pg (27.0-32.0); Mean Platelet Vol. 11.6 fl (6.2-12.0); Monocyte# 2.53 X10^3/uL; NRBC Flagged by Analyzer 0 % (0-5); Neutrophil # 20.23 X10^3/uL (2.7-7.7); POSITIVE DIFFERENTIAL YES; POSITIVE MORPHOLOGY YES; Platelet Count 201 K/mm3 (150-450); RBC Distribution Width CV 12.9 % (11.6-14.6); RBC Distribution Width SD 40.7 fl (35.1-43.9); White Blood Count 29.3 K/mm3 (4.4-11.0)
[2020-12-31 02:35] LABS: Differential Indicated SCAN CRITERIA MET; Eosinophil# 5.13 X10^3/uL
[2020-12-31 02:55] LABS: Lactic Acid 1.1 mmol/L (0.4-1.9)
[2020-12-31 03:01] LABS: ALB/GLOB Ratio 0.6 RATIO (0.9-2.4); AST(SGOT) 111 U/L (15-37); Alanine Aminotransfer ALT/SGPT 85 U/L (13-56); Alkaline Phosphatase 208 U/L (45-117); Anion Gap 7 (5-15); BUN 14 mg/dL (7-18); Chloride 108 mmol/L (98-107); Creatinine, Serum 0.94 mg/dL (0.55-1.02); EST Glomerular Filtration Rate 66 mL/min (>60); Est Glom Filt Rate - Afr Amer 80 mL/min (>60); Estimated Creatinine Clearance 60.13 ml/min; Globulin 3.6 g/dL (2.2-4.2); Glucose 153 mg/dL (74-106); Magnesium 1.8 mg/dL (1.6-2.6); Phosphorus 2.6 mg/dL (2.5-4.9); Potassium 3.6 mmol/L (3.5-5.1); Protein, Total 5.6 g/dL (6.4-8.2); Sodium Level 140 mmol/L (136-145); Thyroid Stim Hormone (TSH) 1.67 uIU/mL (0.358-3.74)
[2020-12-31 03:26] LABS: Scan Smear per Review Criteria MANUAL DIFF
[2020-12-31 03:29] LABS: Absolute Neutrophil Count 26.1 X10^3/uL (2.0-7.7)
[2020-12-31 03:30] LABS: Absolute Lymphocyte Count 0.88 X10^3/uL (0.83-4.51); Lymphocyte 3 % (19-41); Monocyte 8 % (0-10); Neutrophil-Band 16 % (0-5); Neutrophil-Segmented 73 % (47-70); Platelet Estimate ADEQUATE (ADEQ); Red Cell Morphology NORM C+C NORMAL (NORM C&C)
[2020-12-31 04:01] VITALS: BP 102/69; PULSE 94; RESP 18; TEMP 36.8; O2SAT 93
--- NOTE | 2020-12-31 07:45 | PCM.PN.HOSP ---
Subjective Subjective Patient seen and examined. She was admitted with a complaint of dysuria and frequent urination. SHe is being managed for UTI adn pyelonephritis; CT of the abdomen and pelvis done o/a of abdominal and flank pain showed nonspecific left perinephric stranding with urothelial enhancement of hte left ureter concerning for pyelonephritis. SHe is on IV ciprofloxacin. She feels better today and has no complaints. Her WBC has trended up to 29. Review of systems otherwise negative. Objective Data Objective Data Vital Signs: Vital Signs Temp Pulse Resp BP Pulse Ox 98.3 F 94 18 102/69 93 12/31/20 04:01 12/31/20 04:01 12/31/20 04:01 12/31/20 04:01 12/31/20 04:01 Oxygen Delivery Method Room Air Weight: 222 lb 3.615 oz Body Mass Index (BMI) 36.9 Intake & Output: Intake and Output for Last 24 Hours 12/29/20 12/30/20 12/31/20 23:59 23:59 23:59 Intake Total 1200 / 1200 2500 / 2500 Output Total 800 / 800 Balance 1200 / 1200 1700 / 1700 Lab / Micro Data Result Diagrams: 12/31/20 02:20 12/31/20 02:20 Labs: Laboratory Results - last 24 hr 12/30/20 17:50: WBC 24.6 H, RBC 5.49 H, Hgb 15.3 H, Hct 48.3 H, MCV 88.0, MCH 27.9, MCHC 31.7 L, RDW Std Deviation 41.9, RDW Coeff of Omar 12.9, Plt Count 287, MPV 12.1 H, Immature Gran % (Auto) 0.600, Neut % (Auto) 82.9 H, Lymph % (Auto) 9.8 L, [place] % (Auto) 6.3, Eos % (Auto) 0.1, Baso % (Auto) 0.3, Absolute Neuts (auto) 20.4 H, Absolute Lymphs (auto) 2.40, Nucleated RBC % 0, Differential Comment SCANNED, Diff Path Review July12/30/20 17:50: Sodium 139, Potassium 3.3 L, Chloride 102, Carbon Dioxide 28.0, Anion Gap 9, BUN 18, Creatinine 1.40 H, Estim Creat Clear Calc 40.38, Est GFR (MDRD) Af Amer 50 L, Est GFR (MDRD) Non-Af 41 L, BUN/Creatinine Ratio 12.9, Glucose 131 H, Calcium 9.0 12/30/20 17:55: Urine Color Asmita, Urine Clarity Cloudy, Urine pH 5.0, Ur Specific [place] 1.020, Urine Protein 100 H, Urine Glucose (UA) Normal, Urine Ketones Negative, Urine Occult Blood 250 H, Urine Nitrite Negative, Urine Bilirubin Negative, Urine Urobilinogen 1 H, Ur Leukocyte Esterase 500 H, Urine RBC 50-100 SEEN, Urine WBC >100 SEEN, Ur Squamous Epith Cells 5-10 SEEN, Urine Bacteria 1+, Urine Mucus 0 SEEN 12/30/20 21:38: Lactic Acid 3.7 H* 12/31/20 02:20: WBC 29.3 H, RBC 4.60, Hgb 13.0, Hct 40.0, MCV 87.0, MCH 28.3, MCHC 32.5, RDW Std Deviation 40.7, RDW Coeff of Omar 12.9, Plt Count 201, MPV 11.6, Immature Gran % (Auto) CHIEF EXECUTIVE, Neut % (Auto) CHIEF EXECUTIVE, Lymph % (Auto) CHIEF EXECUTIVE, [place] % (Auto) CHIEF EXECUTIVE, Eos % (Auto) CHIEF EXECUTIVE, Baso % (Auto) CHIEF EXECUTIVE, Absolute Neuts (auto) 26.1 H, Absolute Lymphs (auto) 0.88, Neutrophils % (Manual) 73 H, Band Neutrophils % 16 H, Lymphocytes % (Manual) 3 L, Monocytes % (Manual) 8, Nucleated RBC % 0, Diff Path Review July, Platelet Estimate ADEQUATE, RBC Morphology NORM C+C 12/31/20 02:20: Sodium 140, Potassium 3.6, Chloride 108 H, Carbon Dioxide 25.0, Anion Gap 7, BUN 14, Creatinine 0.94, Estim Creat Clear Calc 60.13, Est GFR (MDRD) Af Amer 80, Est GFR (MDRD) Non-Af 66, BUN/Creatinine Ratio 15.0, Glucose 153 H, Calcium 8.0 L, Phosphorus 2.6, Magnesium 1.8, Total Bilirubin 2.40 H, AST 111 H, ALT 85 H, Alkaline Phosphatase 208 H, Total Protein 5.6 L, Albumin 2.0 L, Globulin 3.6, Albumin/Globulin Ratio 0.6 L, TSH 1.67 12/31/20 02:20: Lactic Acid 1.1 Micro: Microbiology 12/30/20 18:55 Nasal Secretion SARS-CoV-2 Antigen (Rapid) - Final Radiography Diagnostic Testing: Radiology Impression Abdomen/Pelvis CT 12/30/20 18:30 IMPRESSION: Nonspecific perinephric fat stranding on the left with urothelial enhancement of the left ureter. This could be seen in ascending urinary tract infection. No obstructing stone or hydronephrosis. Electronically Signed: Wilberto Whalen MD at 20:53 EDT Tel , Service support , Physical Exam Const alert, oriented x3 and no apparent distress Exam Limitations: no limitations HEENT head/scalp atraumatic and moist oral mucous membranes Head and Scalp: normocephalic Eyes PERRL, EOMs intact bilaterally and conjunctivae normal Neck no lymphadenopathy Resp normal respiratory effort, no retractions, no use of accessory muscles and clear to auscultation bilaterally Cardio regular rate, regular rhythm, S1 normal heart sound, S2 normal heart sound and no murmurs GI normal to inspection, nondistended, normoactive bowel sounds, soft to palpation, non-tender and non-distended Extremity normal to inspection, full ROM and no clubbing, cyanosis or edema Peripheral Pulses: Yes pulses 2+ throughout Skin no rashes or lesions noted Neuro oriented x3, CN's II-XII intact bilaterally and moves all extremities Sensorium / Orientation: awake and alert Psych affect normal Assessment & Plan Assessment/Plan (1) Pyelonephritis: PLAN: #Sepsis secondary to pyelonephritis on IV ciprofloxacin blood and urine cultures pending continue hydration with IVF wbc is up to 29 todya. #LActic acidosis: resolved. #BEST: Cr was 1.[address] of the abdomen and pelvis was negative for any evidence of obstruction. #HYpokalemia: resolved #Elevated liver enzymes Total bilirubin is 2.4, AST/ALT are also mildly elevated. ALP is 208 also. reason for this is unclear will get liver USG and check hepatitis profile continue to trend liver enzymes #Depression and fibromyalgia: on aripiprazole and cymbalta #Obesity: s/p John-en-Y gastric bypass. On multivitamins. #DVT prophylaxis: heparin. Charges/Coding Visit Charges Inpatient E&M: 54208 Subs Hosp L3
[2020-12-31 07:57] VITALS: O2SAT 93
[2020-12-31 08:10] VITALS: BP 137/87; PULSE 77; RESP 14; TEMP 36.7; O2SAT 98
[2020-12-31] MEDS: 0.9% Saline Lock 10 ML Syringe IV (08:17)
[2020-12-31] MEDS: Ondansetron 4 MG/2 ML Vial IV (08:17)
[2020-12-31] MEDS: Heparin Injection (Vial) 5,000 UNIT/ML VIAL 5000 UNIT SC ×2 (08:25→20:55)
[2020-12-31] MEDS: Pantoprazole Sodium 40 MG Tablet PO (08:25)
[2020-12-31] MEDS: DULoxetine Hcl 30 MG Capsule 90 MG PO (08:25)
[2020-12-31] MEDS: ARIPiprazole 5 MG Tablet PO (08:26)
[2020-12-31] MEDS: Ciprofloxacin 400 MG/200 ML BAG 200 MG IV ×2 (08:26→20:55)
[2020-12-31 14:15] VITALS: BP 138/86; PULSE 80; RESP 16; TEMP 36.7; O2SAT 96
[2020-12-31] MEDS: Acetaminophen 325 MG Tablet 650 MG PO (18:52)
[2020-12-31 20:49] VITALS: BP 127/70; PULSE 82; RESP 16; TEMP 37.2; O2SAT 95
[2021-01-01 03:27] VITALS: BP 133/81; PULSE 74; RESP 16; TEMP 37.1; O2SAT 92
[2021-01-01] MEDS: Acetaminophen 325 MG Tablet 650 MG PO (03:32)
[2021-01-01 07:49] VITALS: BP 132/88; PULSE 80; RESP 14; TEMP 36.9; O2SAT 96
[2021-01-01] MEDS: ARIPiprazole 5 MG Tablet PO (07:58)
[2021-01-01] MEDS: Pantoprazole Sodium 40 MG Tablet PO (07:58)
[2021-01-01] MEDS: Heparin Injection (Vial) 5,000 UNIT/ML VIAL 5000 UNIT SC (07:58)
[2021-01-01] MEDS: DULoxetine Hcl 30 MG Capsule 90 MG PO (07:58)
[2021-01-01 08:45] LABS: Absolute Lymphocyte Count 1.82 X10^3/uL (0.83-4.51); Absolute Neutrophil Count 10.7 X10^3/uL (2.0-7.7); Basophil# 0.05 X10^3/uL; Basophil% 0.4 % (0-1); Eosinophil# 0.15 X10^3/uL; Eosinophils% 1.1 % (0-5); Hematocrit 41.4 % (37-47); Lymphocyte # 1.82 X10^3/ul (0.83-4.51); Mean Corp Hgb Conc 31.4 g/dL (32-36); Mean Corpuscular Hgb 27.8 pg (27.0-32.0); Mean Corpuscular Volume 88.7 fL (81-99); Mean Platelet Vol. 11.7 fl (6.2-12.0); Monocyte# 1.23 X10^3/uL; Monocyte% 8.8 % (0-10); NRBC Flagged by Analyzer 0 % (0-5); Neutrophil # 10.74 X10^3/uL (2.7-7.7); Neutrophil % 76.3 % (47-70); Platelet Count 204 K/mm3 (150-450); RBC Distribution Width CV 12.9 % (11.6-14.6); Red Blood Count 4.67 M/mm3 (4.2-5.4); White Blood Count 14.1 K/mm3 (4.4-11.0)
--- NOTE | 2021-01-01 10:09 | PCM.DC ---
Discharge Instructions Diet Discharge Diet: No restrictions Activity Discharge Activity: Return to Normal Activity Dressing / Incision Call your doctor if you observe: Fever of 101 or Higher, Shortness of breath, Dizziness, Fainting spells, Swelling in the ankles, Chest pain and Increased palpitations (irregular heartbeat) Follow Up Care Test Results: Test results from this visit will be discussed in further detail at your follow-up appointment, if applicable. Discharge Plan Admission Admit Date/Time: 12/30/20 21:37 Attending Provider: William Bowles Primary Care Provider: Amanda Hallman Discharge Orders/Prescriptions Prescriptions: New ciprofloxacin HCl [Cipro] 500 mg tablet 500 mg PO Q12H Qty: 14 RF: 0 Continued cyclobenzaprine 10 MG tablet 10 mg PO DAILY PRN (Reason: Muscle Spasm) RF: 0 aripiprazole 2 MG tablet 5 mg PO DAILY RF: 0 duloxetine 60 MG capsule 90 mg PO DAILY RF: 0 gabapentin [Neurontin] 100 MG capsule 300 mg PO 5X/DAY RF: 0 ferrous sulfate [FeroSul] 325 mg (65 mg iron) tablet 325 mg PO DAILY RF: 0 Referrals / Follow Up: Amanda Hallman MD [Primary Care Provider] - Within 1 Week Disposition Disposition (needs filled in before D/C Order can be placed): Home, Self Care
--- NOTE | 2021-01-01 10:10 | CASEMGMT ---
RN MOLLY Face to Face with patient for initial transition planning/care coordination assessment. RN CM introduced self and role at [facility]. Patient lying in bed, alert and oriented. Patient willing to participate in assessment and is able to answer all questions appropriately. Care providers, pharmacy, and demographics verified. Patient wishes to discharge home, denies need for home health at this time. Patient states she has no further needs or concerns at this time. CM to follow for discharge planning needs that may arise. PCP: [place] Specialists: none Preferred Pharmacy: [facility] Insurance: [facility] Prescription Benefit: yes Living Will/HPOA: none LNOK: sister, son Living Arrangements: Patient lives with boyfriend and adult son in a 2 story home. Patient is independent and able to ambulate stairs. Transportation: self, boyfriend, son DME/HHC: Patient denies DME or previous HHC Disposition Plan: Patient to discharge home with family support and follow-up plans in place. Karolyn VERDUGO, RN, CM
[2021-01-01 10:13] VITALS: BP 143/88; PULSE 77; RESP 14; TEMP 36.8; O2SAT 99
--- NOTE | 2021-01-01 10:13 | DS.PCM_ITS ---
Providers Date of Admission: 12/30/20 Primary Care Physician: Dr. Amanda Hallman MD Reason For Visit: PYELONEPHRITIS Diagnosis Discharge Diagnosis (1) Pyelonephritis: Status: Acute Code(s): N12 - Tubulo-interstitial nephritis, not specified as acute or chronic Medications at Discharge Home Medications aripiprazole 5 mg PO DAILY 03/10/15 cyclobenzaprine 10 mg PO DAILY PRN 03/10/15 duloxetine 90 mg PO DAILY 01/02/17 gabapentin [Neurontin] 300 mg PO 5X/DAY 09/22/17 ferrous sulfate [FeroSul] 325 mg PO DAILY 12/30/20 ciprofloxacin HCl [Cipro] 500 mg PO Q12H #14 tab 01/01/21 Hospital Course Operations None Procedures None Summary of Care Provided Minutes Spent on Discharge: 35 Hospital Course: Per HPI: ZELDA KHAN, is a 55 F who presented to the emergency department [facility] on 12/01/2020 with a chief complaint of dysuria and frequent urination. She states that approximately 2 weeks ago she started having some nasal congestion which she has just a bit of residual symptoms at this time and is overall better from that aspect but over the last 2 to 3 days developed frequent urination with dysuria, fever, chills, mild suprapubic abdominal pain and left lower quadrant and left flank pain that has been waxing and waning but worsening over the last 24 to 48 hours. She also indicates that she has had about 2 to 3 days of urinary urgency with periods of incontinence secondary to extreme urgency. She indicates she does not have frequent urinary tract infections or issues on a regular basis. She is had some nausea with one episode of emesis last evening. Her nausea has continued but no further emesis in the last 24 hours. She had decreased appetite and decreased p.o. intake. She indicates her only chronic medical conditions are depression and fibromyalgia and she does have a history of gastric bypass which resulted resolution of her hypertension, hyperlipidemia, and diabetes. She has been afebrile throughout her ED stay with a max temperature of 99.6 she was initially mildly tachycardic but this has improved since she has been hydrated with IV fluids. Her blood pressures are stable. She has a marked leukocytosis with a white count of 24.6, and erythrocytosis with hemoglobin of 15.3 and a notable left shift. I suspect some of these elevations are related to infection but also secondary to hemoconcentration. Her BMP shows hypokalemia with potassium of 3.3, acute kidney injury with a serum creatinine of 1.40 (baseline 0.9-1.1). She is a mild lactic acid elevation at 3.7. Her UA is consistent with infection. Given her abdominal and flank pain a CT of her abdomen and pe lvis was performed and showed nonspecific left perinephritic stranding with urothelial enhancement of the left ureter concerning for pyelonephritis and a sending urinary tract infection. She was given ciprofloxacin in the emergency department admission was was requested. Per discussion with her per the patient she is currently only taken aripiprazole, duloxetine, and Protonix. She was able to be taken off her antihypertensives and diabetic medications after her John-en-Y gastric bypass and weight loss. Hospital Course: 1. Sepsis secondary to pyelonephritis/[id number] female presented from home with 1 to 3 days of back pain as well as dysuria and fever. She was found to have pyelonephritis on CT scan on the left. She has since said that this has improved significantly, on admission her white count was 24 and did peak at 29, today it is 14. She is feeling much better today and would like to go home. Urine cultures did come back positive with pansensitive E. coli therefore she will be discharged 7 more days of Cipro to complete a 10-day course. Creatinine also had peaked to 1.4, but is now back down to her baseline of 0.9. She also did have elevated LFTs however this could likely be reactive therefore do recommend that she have a CMP done as an outpatient by her PCP. I discussed with her the plan for discharge today and she expressed understanding of the risk benefits of going home and would like to go home today. She will need to follow-up with her PCP within a week. Physical Exam Const alert, oriented x3 and no apparent distress General Appearance: cooperative HEENT normocephalic and moist oral mucous membranes Eyes PERRL, EOMs intact bilaterally and conjunctivae normal Neck supple and no JVD Resp normal respiratory effort, no retractions, no use of accessory muscles and clear to auscultation bilaterally Auscultation: Negative for crackles, rales, rhonchi or wheezes Cardio regular rate, regular rhythm, S1 normal heart sound, S2 normal heart sound and no murmurs GI soft to palpation, non-tender and non-distended; Negative for hepatosplenomegaly Extremity no clubbing, cyanosis or edema Skin no rashes or lesions noted Neuro no focal motor deficits and no sensory deficits noted Psych affect normal Appearance: appropriate Weight / BMI Weight Weight: 222 lb 3.615 oz Body Mass Index (BMI) 36.9 ABG / Lab / Microbiology Data Result Diagrams: 01/01/21 08:22 12/31/20 02:20 Laboratory: Laboratory Results - last 24 hr 01/01/21 08:22: WBC 14.1 H, RBC 4.67, Hgb 13.0, Hct 41.4, MCV 88.7, MCH 27.8, MCHC 31.4 L, RDW Std Deviation 42.0, RDW Coeff of Omar 12.9, Plt Count 204, MPV 11.7, Immature Gran % (Auto) 0.400, Neut % (Auto) 76.3 H, Lymph % (Auto) 13.0 L, [place] % (Auto) 8.8, Eos % (Auto) 1.1, Baso % (Auto) 0.4, Absolute Neuts (auto) 10.7 H, Absolute Lymphs (auto) 1.82, Nucleated RBC % 0 Microbiology: Microbiology 12/30/20 17:55 Urine, Clean Catch Urine Culture - Final Presumptive E. coli 12/30/20 18:55 Nasal Secretion SARS-CoV-2 Antigen (Rapid) - Final D/C Instructions Discharge Diet: No restrictions Call your doctor if you observe: Fever of 101 or Higher, Shortness of breath, Dizziness, Fainting spells, Swelling in the ankles, Chest pain and Increased palpitations (irregular heartbeat) Meaningful Use Info Meaningful Use Diagnoses (Choose all that apply): None applicable Discharge Plan Admission Admit Date/Time: 12/30/20 21:37 Attending Provider: William Bowles Primary Care Provider: Amanda Hallman Discharge Orders/Prescriptions Prescriptions: New ciprofloxacin HCl [Cipro] 500 mg tablet 500 mg PO Q12H Qty: 14 RF: 0 Continued cyclobenzaprine 10 MG tablet 10 mg PO DAILY PRN (Reason: Muscle Spasm) RF: 0 aripiprazole 2 MG tablet 5 mg PO DAILY RF: 0 duloxetine 60 MG capsule 90 mg PO DAILY RF: 0 gabapentin [Neurontin] 100 MG capsule 300 mg PO 5X/DAY RF: 0 ferrous sulfate [FeroSul] 325 mg (65 mg iron) tablet 325 mg PO DAILY RF: 0 Referrals / Follow Up: Amanda Hallman MD [Primary Care Provider] - Within 1 Week Disposition Disposition (needs filled in before D/C Order can be placed): Home, Self Care Charges/Coding Visit Charges Inpatient E&M: 71345 Disch Hosp
[2021-01-01] MEDS: Ciprofloxacin 400 MG/200 ML BAG 200 MG IV (10:52)
[2021-01-01 12:51] LABS: Pathologist Review Reviewed
[2021-01-01 13:08] LABS: Pathologist Review Reviewed
== END 2021-01-01 12:15 | disposition home or self-care (01) | DRG 872 ==
LOC: ED 21:41 → MS3 12-31 07:13
PROVIDERS: Admitting Provider Internal Medicine; Emergency Provider Emergency Medicine; PCP Internal Medicine; Visit Provider Family Medicine
DX: A41.9 Sepsis, unspecified organism (principal); N10 Acute pyelonephritis; N17.9 Acute kidney failure, unspecified; B96.20 Unspecified Escherichia coli [E. coli] as the cause of diseases classified elsewhere; E87.6 Hypokalemia; E86.0 Dehydration; R74.8 Abnormal levels of other serum enzymes; R32 Unspecified urinary incontinence; M79.7 Fibromyalgia; K21.9 Gastro-esophageal reflux disease without esophagitis; F32.A Depression, unspecified; F41.9 Anxiety disorder, unspecified; E66.9 Obesity, unspecified; Z68.36 Body mass index [BMI] 36.0-36.9, adult; Z79.899 Other long term (current) drug therapy; Z98.84 Bariatric surgery status
CPT/HCPCS: 36415; 74177; 80048; 80053; 81001; 83605; 83735; 84100; 84443; 85025; 87040; 87077; 87086; 87088; 87186; 87426; 99251; 99284; J7030; Q9967; A4216; G0463; J0744; J2405